=== PATIENT | female | born 1980 | race Hispanic/Latino ===

== ENCOUNTER 2020-02-29 16:47 | Observation (INO) | payer OTHER, SELFPAY ==
--- NOTE | ~2020-02-29 | XR_ITS ---
EXAMINATION: XR abdomen/kub 1V INDICATION: Flank pain and history of kidney stones TECHNIQUE: Supine views of the abdomen were obtained on 2 radiographs. COMPARISON: 08/26/2009 FINDINGS: No definite urinary tract calculi are identified. The bowel gas pattern is normal. There ar e cholecystectomy clips in the right upper quadrant. A surgical clip in the right lateral abdomen may reflect a dropped cholecystectomy clip. IMPRESSION: 1. No urinary tract calculi identified. Reviewed, dictated and finalized at location A.
--- NOTE | ~2020-02-29 | XR_ITS ---
EXAMINATION: XR chest 1V portable DATE: 02/29/2020 17:44 INDICATION: Shortness of breath and cough. TECHNIQUE: A single frontal view of the chest was obtained. COMPARISON: Chest single views 10/05/2019 FINDINGS: There are patchy airspace opacities in the mid and lower lung zones. No pleural effusion or pneumothorax. The heart size is normal. Surgical clips in the right upper quadrant are likely from c holecystectomy. IMPRESSION: 1. Patchy airspace opacities in the mid and lower lung zones suspicious for atypical pneumonia such a s COVID-19 pneumonia. Reviewed, dictated and finalized at location A. IMPRESSION: 1. Patchy airspace opacities in the mid and lower lung zones suspicious for aty pical pneumonia such as COVID-19 pneumonia.
[2020-02-29 16:58] VITALS: BP 104/58; PULSE 62; RESP 25; TEMP 36.3; O2SAT 99
--- NOTE | 2020-02-29 17:06 | ECG_ITS ---
Measurements Intervals [place] Rate: 62 P: 27 GA: 157 QRS: -5 QRSD: 101 T: 29 QT: 365 QTc: 372 Interpretive Statements SINUS RHYTHM BASELINE WANDER- V1-V6 NORMAL ECG Electronically Signed On 03-01-2020 7:14:56 CDT by Elvin Barrera D.O.
[2020-02-29 17:27] LABS: Basophils Percent Auto 0.3 % (0.2-1.2); Eosinophils Absolute Auto 0.1 K/mm3 (0-0.3); Eosinophils Percent Auto 1.3 % (0-4.4); Immature Granulocyte Absolute 0.01 K/mm3 (0.00-0.031); Immature Granulocyte Percent A 0.3 % (0-0.5); Lymphocytes Absolute Auto 1.37 K/mm3 (0.9-3.2); Lymphocytes Percent Auto 36.9 % (18.3-44.2); Mean Corpuscular HGB Conc 36.1 g/dl (32-36); Mean Corpuscular Hemoglobin 33.4 pg (26-34); Mean Corpuscular Volume 92.5 fl (80-100); Mean Platelet Volume 9.9 fl (7.4-10.4); Monocytes Absolute Auto 0.3 K/mm3 (0.1-0.6); Monocytes Percent Auto 7.3 % (2.6-8.5); Neutrophils Percent Auto 53.9 % (45.5-73.1); Platelet Count Result 171 k/mm3 (150-375); Red Blood Count 3.89 M/mm3 (4.2-5.4); Red Cell Distribution Width 11.8 % (11.5-14.5); White Blood Count 3.7 K/mm3 (4.5-10.0)
[2020-02-29] MEDS: ALBUTEROL SULFATE (*SP) AEROSOL 1 PUFF 4 PUFF INHALATION (17:54)
[2020-02-29 18:05] LABS: Blood Urea Nitrogen 11 mg/dL (7-17); Calcium 8.8 mg/dL (8.4-10.2); Carbon Dioxide 23 mmol/L (22-30); Chloride 103 mmol/L (98-107); Estimated CRCL calculation 127 ml/min; Estimated Glomerular Filt Rate > 60; Glucose 233 mg/dL (65-105); Potassium 3.8 mmol/L (3.4-5.0); Sodium 135 mmol/L (137-145)
--- NOTE | 2020-02-29 19:06 | ED.URI ---
HPI - URI/Sore Throat General Chief Complaint: Upper Respiratory Infection Stated Complaint: covid symptoms, sob Time Seen by Provider: 02/29/20 16:52 History of Present Illness HPI Narrative: Patient is a 39-year-old female who presents to the ER with cough and shortness of breath. Patient reports her was diagnosed with COVID-19 on 02/24/2020. She began experiencing symptoms 3 days ago that included cough and subjective fever. Had recently traveled back from [place]. Has not been taking medications. She is diabetic. No underlying lung disease and does not have her own nebulizer or inhaler. Related Data Home Medications Medication Instructions Recorded Confirmed calcium carbonate-vitamin D3 tablet 02/29/20 [Oysco 500/D] glyburide 5 mg PO DAILY 02/29/20 metformin 750 mg PO BID 02/29/20 multivitamin tablet 02/29/20 Allergies Allergy/AdvReac Type Severity Reaction Status Date / Time codeine Allergy Mild HIVES Verified 02/29/20 17:21 Review of Systems Review of Systems: All systems reviewed & are unremarkable except as noted in HPI and below Constitutional: Constitutional: Denies chills, Reports fatigue and Reports fever(s) ENT: Denies nasal congestion and Denies sore throat Cardiovascular: Cardiovascular: Denies chest pain and Denies rapid heart rate Respiratory: Respiratory: Reports cough, Reports dyspnea and Denies wheezing Gastrointestinal: Gastrointestinal: Denies abdominal pain, Denies nausea and Denies vomiting PMFSH Past Medical History Medical History (Updated 02/29/20 @ 20:53 by Julio Cesar Dumont MD) Diabetes mellitus GERD (gastroesophageal reflux disease) Surgical History Surgical History (Updated 02/29/20 @ 20:48 by Julio Cesar Dumont MD) H/O section History of cholecystectomy Social History Social History Smoking status: Current every day smoker Tobacco type: cigarettes Second hand tobacco smoke exposure: Yes Alcohol intake: never Substance use: never Substance use type: does not use 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 HEAD: Normocephalic, atraumatic. ENT: Mucous membranes moist. CHEST: Clear to auscultation. Frequent coughing with deep breath. HEART: Regular rate and rhythm. Normal peripheral pulses. ABDOMEN: Soft, nontender, nondistended. EXTREMITIES: Normal range of motion. No edema. SKIN: Warm, dry, no rash. NEURO: Alert and oriented x3. PSYCH: Normal mood and affect. Course Course Emergency Course: Accepted for admission for abx and respiratory treatments. Vital Signs Vital signs: Vital Signs Temperature 97.4 F L 02/29/20 16:58 Pulse Rate 62 02/29/20 16:58 Respiratory Rate 25 H 02/29/20 16:58 Blood Pressure 104/58 L 02/29/20 16:58 Pulse Oximetry 99 02/29/20 16:58 Temperature 97.4 F L 02/29/20 16:58 Pulse Rate 92 02/29/20 19:41 Respiratory Rate 26 H 02/29/20 19:41 Blood Pressure 113/72 02/29/20 19:41 Pulse Oximetry 97 02/29/20 19:41 MDM - URI/Sore Throat Lab Data Result diagrams: 02/29/20 17:21 02/29/20 17:41 Labs: Lab Results 02/29/20 02/29/20 Range/Units 17:21 17:41 WBC 3.7 L (4.5-10.0) K/mm3 RBC 3.89 L (4.2-5.4) M/mm3 Hgb 13.0 (12.0-15.0) g/dL Hct 36.0 L (37.0-47.0) % MCV 92.5 (80-100) fl MCH 33.4 (26-34) pg MCHC 36.1 H (32-36) g/dl RDW 11.8 (11.5-14.5) % Plt Count 171 D (150-375) k/mm3 MPV 9.9 (7.4-10.4) fl Immature Gran % (Auto) 0.3 (0-0.5) % Neut % (Auto) 53.9 (45.5-73.1) % Lymph % (Auto) 36.9 (18.3-44.2) % [place] % (Auto) 7.3 (2.6-8.5) % Eos % (Auto) 1.3 (0-4.4) % Baso % (Auto) 0.3
[2020-02-29 19:41] VITALS: BP 113/72; PULSE 92; RESP 26; O2SAT 97
--- NOTE | 2020-02-29 21:01 | ADMGEN ---
This patient, Sury Andrea, was admitted to 3 [facility] Surg Room 331-01. Patient/family oriented to hospital policies and general routines including ID bracelet, bed and alarms, visiting hours, pain management, procedures, bathroom and other care routines, personal items, smoking policy, room service/diet, and visiting hours. Valuables list has been completed. Information on how to activate the Rapid Response Team has been discussed. Patient/Family are encouraged to report perceived risks to care and to ask questions if they do not understand what they are told or what they should do.
[2020-02-29 21:17] VITALS: BP 116/56; PULSE 76; RESP 20; TEMP 37.4; O2SAT 99; BMI 26.6
[2020-02-29 22:16] LABS: Glucose Point of Care 164 (65-105)
--- NOTE | 2020-02-29 23:45 | PM.IMHP ---
H&P: HPI History of Present Illness Chief complaint: Cough, shortness of breath Narrative: Date and time of patient contact: 02/29/2020 at 11:45 p.m. Sury Andrea is a 39 year old female with a past medical history of insulin-dependent diabetes and prior hospitalization for influenza associated pneumonia September 2019 who presented to the ER with shortness of breath and cough. The patient reported that in January to [place] because her father in law had had a stroke. Her and her returned from [place] February 19. On February 23 her tested positive for COVID-19. He had been sick with upper respiratory symptoms starting a day or so after the returned home. She has tried isolate her but there 10 people living in her home. She develops symptoms of dry nonproductive cough, shortness of breath, pain with breathing, subjective fevers, and generalized myalgias starting on February 25. She has also noticed loss of the sense of taste and smell. She has noticed some intermittent wheezing but denies a history of COPD or asthma. She did have some lower extremity swelling when she 1st arrived in [place] but this resolved within a day or 2 of her arriving [place], she has not had a recurrence of leg swelling. She has had decreased appetite but denies any nausea or vomiting. She reports that her pleuritic chest pain is an 8/10 in intensity and is present on both sides of her chest. She also has noted some right flank pain. She states that in mid January she went to the hospital in [place] because of flank pain and was diagnosed with kidney stones. She was given 3 different medications to help her passed a kidney stone but she does not think she has passed them. That the pain in her flank is a 6/10 in intensity and is aching. It is been somewhat intermittent since onset. She reports decreased urine output and slightly darker urine. She denies any hematuria, hematochezia or melena. She has not had any changes in her bowel habits. She thinks that her 4 years old is also developing upper respiratory symptoms. She reports that she has had diabetes since she was 18 years old. She reports that she was morbidly obese when she was recently diagnosed with diabetes but has had significant weight loss over the years. Review of Systems Review of Systems: Narrative: 12 systems were reviewed with pertinent positives and negatives per HPI. Except as documented in the HPI, all other systems were reviewed and are negative. [facility] Past Medical History Medical History (Updated 03/01/20 @ 02:39 by Yarelis France DO) Depression Diabetes mellitus with insulin therapy Genital herpes GERD (gastroesophageal reflux disease) History of PCOS Pancreatitis Peripheral neuropathy Seasonal rhinitis Surgical History Surgical History (Updated 02/29/20 @ 21:34 by Yarelis France DO) H/O section 01/2014 History of cholecystectomy History of dilation and curettage X3 Family History Family History (Updated 02/29/20 @ 21:31 by Yarelis France DO) Mother Diabetes mellitus Carcinoma of colon Grandparent Lung cancer Father Hypertension Heart attack Social History Social History (Updated 03/01/20 @ 02:35 by Yarelis France DO) Social History: Primary care physician: Dr. Juan Carlos Sosa Code status: Full code Smoking packs per day: 0.25 Smoking cigarettes per day: 5.0 Years smoked: 20 Smoking pack-years: 5.00 Smoking status: Former smoker Tobacco type: cigarettes Second hand tobacco smoke exposure: Yes Alcohol intake: current Alcohol use details: She drinks alcohol in moderation in on occasion. Approximately 1 drink every month or so. Substance use: never Substance use type: does not use Living arrangements: with family Additional living arrangements comments: She lives at home with her 5 children and . She told nursing staff that she currently has 10 people christy
[2020-03-01] VITALS (7 sets, daily range): BP systolic 102–125; BP diastolic 45–62; PULSE 61–102; RESP 16–18; TEMP 36.7–39.2; O2SAT 92–97
--- NOTE | 2020-03-01 05:33 | PCRCNOTE ---
Window of time for administration has passed. See next scheduled administration.
[2020-03-01 07:40] LABS: Hemoglobin 11.6 g/dL (12.0-15.0); Mean Corpuscular HGB Conc 35.2 g/dl (32-36); Mean Platelet Volume 9.3 fl (7.4-10.4); Platelet Count Result 145 k/mm3 (150-375); Red Blood Count 3.51 M/mm3 (4.2-5.4); Red Cell Distribution Width 11.9 % (11.5-14.5); White Blood Count 3.9 K/mm3 (4.5-10.0)
[2020-03-01 07:53] LABS: D Dimer 0.67 ug/mL (<0.48)
--- NOTE | 2020-03-01 08:00 | ECG_ITS ---
Measurements Intervals [place] Rate: 64 P: 24 [place]: 170 QRS: -3 QRSD: 85 T: 6 QT: 397 QTc: 412 Interpretive Statements SINUS RHYTHM NORMAL ECG Electronically Signed On 03-01-2020 12:52:43 CDT by Elvin Barrera D.O.
[2020-03-01 08:03] LABS: Alanine Aminotransferase 40 U/L (4-35); Albumin Level 3.7 g/dL (3.5-5.1); Alkaline Phosphatase 87 U/L (38-126); Aspartate Amino Transferase 39 U/L (14-36); Bilirubin,Total 0.3 mg/dL (0.2-1.3); Blood Urea Nitrogen 11 mg/dL (7-17); CRP 4.8 mg/dL (<1.0); Calcium 8.4 mg/dL (8.4-10.2); Carbon Dioxide 28 mmol/L (22-30); Chloride 104 mmol/L (98-107); Estimated CRCL calculation 107 ml/min; Estimated Glomerular Filt Rate > 60; Glucose 178 mg/dL (65-105); Lactate Dehydrogenase 355 U/L (313-618); Potassium 3.9 mmol/L (3.4-5.0); Sodium 134 mmol/L (137-145)
[2020-03-01] MEDS: ALBUTEROL SULFATE (*SP) AEROSOL 1 PUFF 4 PUFF INHALATION ×4 (08:41→20:44)
[2020-03-01] MEDS: INSULIN GLARGINE (*BKC) 100 UNITS/ML 25 UNITS SUB-Q (09:54)
[2020-03-01] MEDS: ENOXAPARIN 40 MG/0.4 ML SYRINGE SUB-Q (09:55)
[2020-03-01] MEDS: metFORMIN HCL 250 MG TABLET PO ×2 (09:55→17:59)
[2020-03-01] MEDS: MULTIVITAMINS THERAPEUTIC TAB (*BKC) 1 TABLET PO (09:56)
[2020-03-01] MEDS: metFORMIN HCL 500 MG TABLET PO ×2 (09:56→17:59)
[2020-03-01] MEDS: glyBURIDE 5 MG TABLET PO (09:56)
[2020-03-01 10:41] LABS: Glucose Point of Care 154 (65-105)
[2020-03-01 13:37] LABS: SARS-CoV-2 RNA PCR Positive
[2020-03-01 13:52] LABS: Glucose Point of Care 182 (65-105)
--- NOTE | 2020-03-01 16:30 | PM.IMPN ---
Progress Note: A&P Assessment and Plan (1) Pneumonia: Qualifiers: Laterality: bilateral Lung location: unspecified part of lung Pneumonia type: due to unspecified organism Qualified Code(s): J18.9 - Pneumonia, unspecified organism Code(s): J18.9 - Pneumonia, unspecified organism Status: Acute Assessment and Plan: The patient is at high risk for possible COVID-19 related pneumonia. She has been started on empiric antibiotic therapy with azithromycin. Will check repeat EKG in a.m.. Her current QT interval is normal. Given her report of wheezing will add albuterol inhaler every 6 hours. The patient would like to go home tomorrow if she is stable. 03/01/20 16:30 Patient is a 39-year-old female recently traveled to [place], patient presented emergency department with complaint cough shortness of breath subjective fever patient is positive for COVID-19, patient clinically symptoms are stable though with cough and fever patient is on room air and not requiring any supplemental oxygen, her COVID test is positive, patient states feeling better still has cough and shortness of breath but denies any fever or chills. Patient was started on azithromycin from urgency department for possible pneumonia, and albuterol inhaler, patient does not qualify for Remdesivir antiviral medication as patient clinically stable on room air, continue to monitor patient oxygen requirement if remains stable and without fever may discharge the patient home with self quarantine. (2) Person under investigation for COVID-19: Code(s): Z20.828 - Contact with and (suspected) exposure to other viral communicable diseases Status: Acute Assessment and Plan: COVID-19 testing is pending. Isolation has been initiated with droplet/airborne precautions. Inflammatory markers including D-dimer, CRP, LDH and ferritin have been ordered for a.m. 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 Will resume the patient's long-acting insulin. Moderate sliding scale insulin has been added a.c. and HS. Consistent carbohydrate diet has been ordered. (4) Kidney stone on right side: Code(s): N20.0 - Calculus of kidney Status: Acute Assessment and Plan: She is reporting persistent right flank pain since diagnosis of kidney stones in mid January. Will check a UA and KUB. Will hold off on ordering a CT of the abdomen pelvis at this time given the patient's possible COVID-19 infection. Subjective Date/time seen: 03/01/20 16:30 Patient is a 39-year-old female recently traveled to [place], patient presented emergency department with complaint cough shortness of breath subjective fever patient is positive for COVID-19, patient clinically symptoms are stable though with cough and fever patient is on room air and not requiring any supplemental oxygen, her COVID test is positive, patient states feeling better still has cough and shortness of breath but denies any fever or chills. Patient was started on azithromycin from urgency department for possible pneumonia, and albuterol inhaler, patient does not qualify for Remdesivir antiviral medication as patient clinically stable on room air, continue to monitor patient oxygen requirement if remains stable and without fever may discharge the patient home with self quarantine. Review of Systems Review of Systems: All systems reviewed & are unremarkable except as noted in HPI and below Exam Narrative:
[2020-03-01] MEDS: ACETAMINOPHEN 325 MG TABLET 650 MG PO (17:58)
[2020-03-02] VITALS (7 sets, daily range): BP systolic 98–120; BP diastolic 49–65; PULSE 73–95; RESP 14–20; TEMP 36.2–37; O2SAT 94–97
[2020-03-02 04:03] LABS: Glucose Point of Care 113 (65-105)
[2020-03-02 07:31] LABS: Glucose Point of Care 125 (65-105)
[2020-03-02] MEDS: MULTIVITAMINS THERAPEUTIC TAB (*BKC) 1 TABLET PO (09:38)
[2020-03-02] MEDS: ENOXAPARIN 40 MG/0.4 ML SYRINGE SUB-Q (09:38)
[2020-03-02] MEDS: glyBURIDE 5 MG TABLET PO (09:38)
[2020-03-02] MEDS: metFORMIN HCL 500 MG TABLET PO (09:38)
[2020-03-02] MEDS: metFORMIN HCL 250 MG TABLET PO (09:38)
[2020-03-02] MEDS: ALBUTEROL SULFATE (*SP) AEROSOL 1 PUFF 4 PUFF INHALATION ×4 (10:44→20:14)
--- NOTE | 2020-03-02 16:21 | PM.IMPN ---
Progress Note: A&P Assessment and Plan (1) Pneumonia: Qualifiers: Laterality: bilateral Lung location: unspecified part of lung Pneumonia type: due to unspecified organism Qualified Code(s): J18.9 - Pneumonia, unspecified organism Code(s): J18.9 - Pneumonia, unspecified organism Status: Acute Assessment and Plan: The patient is at high risk for possible COVID-19 related pneumonia. She has been started on empiric antibiotic therapy with azithromycin. Will check repeat EKG in a.m.. Her current QT interval is normal. Given her report of wheezing will add albuterol inhaler every 6 hours. The patient would like to go home tomorrow if she is stable. 03/02/20 16:21 Patient is a 39-year-old female recently traveled to [place], patient presented emergency department with complaint cough shortness of breath subjective fever patient is positive for COVID-19, patient clinically symptoms are stable though with cough and fever patient is on room air and not requiring any supplemental oxygen, her COVID test is positive, patient states feeling better still has cough and shortness of breath but denies any fever or chills. Patient was started on azithromycin from urgency department for possible pneumonia, and albuterol inhaler, patient does not qualify for Remdesivir antiviral medication as patient clinically stable on room air, continue to monitor patient oxygen requirement if remains stable and without fever may discharge the patient home with self quarantine possibly tomorrow, patient has agreed with plan. her he already positive can last picker her from the hospital. (2) Person under investigation for COVID-19: Code(s): Z20.828 - Contact with and (suspected) exposure to other viral communicable diseases Status: Acute Assessment and Plan: COVID-19 testing is pending. Isolation has been initiated with droplet/airborne precautions. Inflammatory markers including D-dimer, CRP, LDH and ferritin have been ordered for a.m. 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 Will resume the patient's long-acting insulin. Moderate sliding scale insulin has been added a.c. and HS. Consistent carbohydrate diet has been ordered. (4) Kidney stone on right side: Code(s): N20.0 - Calculus of kidney Status: Acute Assessment and Plan: She is reporting persistent right flank pain since diagnosis of kidney stones in mid January. Will check a UA and KUB. Will hold off on ordering a CT of the abdomen pelvis at this time given the patient's possible COVID-19 infection. Subjective Date/time seen: 03/02/20 16:21 Patient is a 39-year-old female recently traveled to [place], patient presented emergency department with complaint cough shortness of breath subjective fever patient is positive for COVID-19, patient clinically symptoms are stable though with cough and fever patient is on room air and not requiring any supplemental oxygen, her COVID test is positive, patient states feeling better still has cough and shortness of breath but denies any fever or chills. Patient was started on azithromycin from urgency department for possible pneumonia, and albuterol inhaler, patient does not qualify for Remdesivir antiviral medication as patient clinically stable on room air, continue to monitor patient oxygen requirement if remains stable and without fever may discharge the patient home with self quarantine possibly tomorrow, pat
[2020-03-02 16:53] LABS: Alanine Aminotransferase 31 U/L (4-35); Albumin Level 3.8 g/dL (3.5-5.1); Alkaline Phosphatase 85 U/L (38-126); Aspartate Amino Transferase 32 U/L (14-36); Bilirubin,Total 0.3 mg/dL (0.2-1.3); Blood Urea Nitrogen 12 mg/dL (7-17); CRP 7.1 mg/dL (<1.0); Calcium 9.1 mg/dL (8.4-10.2); Carbon Dioxide 30 mmol/L (22-30); Chloride 102 mmol/L (98-107); Estimated CRCL calculation 107 ml/min; Estimated Glomerular Filt Rate > 60; Glucose 83 mg/dL (65-105); Potassium 3.4 mmol/L (3.4-5.0); Sodium 139 mmol/L (137-145)
[2020-03-02] MEDS: ACETAMINOPHEN 325 MG TABLET 650 MG PO (18:09)
[2020-03-02 19:38] LABS: Glucose Point of Care 100 (65-105)
[2020-03-02 19:38] LABS: Glucose Point of Care 85 (65-105)
[2020-03-02 19:38] LABS: Glucose Point of Care 130 (65-105)
[2020-03-02 23:12] LABS: Glucose Point of Care 109 (65-105)
[2020-03-03 02:00] VITALS: BP 105/57; PULSE 66; RESP 14; TEMP 36.7; O2SAT 96
[2020-03-03 06:00] VITALS: BP 108/60; PULSE 70; RESP 14; TEMP 36.7; O2SAT 95
[2020-03-03 06:48] LABS: Basophils Percent Auto 0.2 % (0.2-1.2); Eosinophils Absolute Auto 0.1 K/mm3 (0-0.3); Eosinophils Percent Auto 2.3 % (0-4.4); Hematocrit 33.4 % (37.0-47.0); Hemoglobin 11.6 g/dL (12.0-15.0); Immature Granulocyte Absolute 0.02 K/mm3 (0.00-0.031); Immature Granulocyte Percent A 0.4 % (0-0.5); Lymphocytes Absolute Auto 1.37 K/mm3 (0.9-3.2); Lymphocytes Percent Auto 28.8 % (18.3-44.2); Mean Corpuscular HGB Conc 34.7 g/dl (32-36); Mean Corpuscular Volume 95.2 fl (80-100); Mean Platelet Volume 9.2 fl (7.4-10.4); Monocytes Absolute Auto 0.4 K/mm3 (0.1-0.6); Neutrophils Absolute Auto 2.9 K/mm3 (1.3-6.7); Neutrophils Percent Auto 60.3 % (45.5-73.1); Platelet Count Result 170 k/mm3 (150-375); Red Blood Count 3.51 M/mm3 (4.2-5.4); Red Cell Distribution Width 11.6 % (11.5-14.5); White Blood Count 4.8 K/mm3 (4.5-10.0)
[2020-03-03 07:30] LABS: Alanine Aminotransferase 30 U/L (4-35); Albumin Level 3.8 g/dL (3.5-5.1); Alkaline Phosphatase 81 U/L (38-126); Aspartate Amino Transferase 35 U/L (14-36); Bilirubin,Total 0.3 mg/dL (0.2-1.3); Blood Urea Nitrogen 11 mg/dL (7-17); CRP 6.6 mg/dL (<1.0); Carbon Dioxide 28 mmol/L (22-30); Chloride 104 mmol/L (98-107); Estimated CRCL calculation 107 ml/min; Estimated Glomerular Filt Rate > 60; Glucose 113 mg/dL (65-105); Potassium 4.1 mmol/L (3.4-5.0); Sodium 136 mmol/L (137-145)
[2020-03-03] MEDS: ALBUTEROL SULFATE (*SP) AEROSOL 1 PUFF 4 PUFF INHALATION ×2 (09:25→12:43)
[2020-03-03] MEDS: ENOXAPARIN 40 MG/0.4 ML SYRINGE SUB-Q (09:32)
[2020-03-03] MEDS: MULTIVITAMINS THERAPEUTIC TAB (*BKC) 1 TABLET PO (09:32)
[2020-03-03 09:59] LABS: Glucose Point of Care 104 (65-105)
[2020-03-03 10:00] VITALS: BP 116/67; PULSE 65; RESP 14; TEMP 37.5; O2SAT 97
--- NOTE | 2020-03-03 11:08 | PM.DS ---
DS: Admitting Diagnosis Admitting Diagnosis Admitting Diagnosis: Pneumonia, unspecified organism DS: Discharge Diagnosis Discharge Diagnosis (1) Pneumonia: Qualifiers: Laterality: bilateral Lung location: unspecified part of lung Pneumonia type: due to unspecified organism Qualified Code(s): J18.9 - Pneumonia, unspecified organism Code(s): J18.9 - Pneumonia, unspecified organism Status: Acute Assessment and Plan: The patient is at high risk for possible COVID-19 related pneumonia. She has been started on empiric antibiotic therapy with azithromycin. Will check repeat EKG in a.m.. Her current QT interval is normal. Given her report of wheezing will add albuterol inhaler every 6 hours. The patient would like to go home tomorrow if she is stable. 03/02/20 16:21 Patient is a 39-year-old female recently traveled to [place], patient presented emergency department with complaint cough shortness of breath subjective fever patient is positive for COVID-19, patient clinically symptoms are stable though with cough and fever patient is on room air and not requiring any supplemental oxygen, her COVID test is positive, patient states feeling better still has cough and shortness of breath but denies any fever or chills. Patient was started on azithromycin from urgency department for possible pneumonia, and albuterol inhaler, patient does not qualify for Remdesivir antiviral medication as patient clinically stable on room air, continue to monitor patient oxygen requirement if remains stable and without fever may discharge the patient home with self quarantine possibly tomorrow, patient has agreed with plan. her he already positive can picker packer her from the hospital. (2) Person under investigation for COVID-19: Code(s): Z20.828 - Contact with and (suspected) exposure to other viral communicable diseases Status: Acute Assessment and Plan: COVID-19 testing is pending. Isolation has been initiated with droplet/airborne precautions. Inflammatory markers including D-dimer, CRP, LDH and ferritin have been ordered for a.m. 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 Will resume the patient's long-acting insulin. Moderate sliding scale insulin has been added a.c. and HS. Consistent carbohydrate diet has been ordered. (4) Kidney stone on right side: Code(s): N20.0 - Calculus of kidney Status: Acute Assessment and Plan: She is reporting persistent right flank pain since diagnosis of kidney stones in mid January. Will check a UA and KUB. Will hold off on ordering a CT of the abdomen pelvis at this time given the patient's possible COVID-19 infection. DS: Summary Hospital Course Reason for hospitalization: Sury Andrea is a 39 year old female with a past medical history of insulin-dependent diabetes and prior hospitalization for influenza associated pneumonia September 2019 who presented to the ER with shortness of breath and cough. The patient reported that in January to [place] because her father in law had had a stroke. Her and her returned from [place] February 19. On February 23 her tested positive for COVID-19. He had been sick with upper respiratory symptoms starting a day or so after the returned home. She has tried isolate her but there 10 people living in her home. She develops symptoms of dry nonproductive cough, shortness of breath, pain with breathing, subjective fevers, and
== END 2020-03-03 13:10 | disposition home or self-care (01) ==
LOC: ANHED 19:02 → ANH3MEDSUR 20:53
PROVIDERS: Internal Medicine; Admitting Provider Internal Medicine; Emergency Provider Emergency Medicine; PCP Emergency Medicine; Visit Provider Family Medicine
DX: U07.1 COVID-19 (principal); J12.89 Other viral pneumonia; E11.65 Type 2 diabetes mellitus with hyperglycemia; E11.42 Type 2 diabetes mellitus with diabetic polyneuropathy; N20.0 Calculus of kidney; K21.9 Gastro-esophageal reflux disease without esophagitis; F17.210 Nicotine dependence, cigarettes, uncomplicated; Z79.4 Long term (current) use of insulin; Z79.899 Other long term (current) drug therapy
CPT/HCPCS: 36415; 71045; 74018; 80048; 80053; 82728; 83615; 85025; 85027; 85380; 86140; 87040; 87635; 93005; 94640; 96365; 96372; 99285; A9270; C9803; G0378; G0379; J0456; J1650; J1815; U0003

== ENCOUNTER 2020-04-28 14:20 | Emergency (ER) | payer OTHER, SELFPAY ==
--- NOTE | ~2020-04-28 | US_ITS ---
EXAMINATION: US pelvic complete w TV EXAM DATE: 04/28/2020 18:06 INDICATION: Pelvic pain. TECHNIQUE: Pelvic transabdominal and transvaginal sonogram was performed. There are multiple graysca le and Doppler images available for interpretation. There is no prior study for comparison. FINDINGS: Uterus measures 9.1 x 5.5 x 4.9 cm, and is morphologically normal. Endometrial stripe aisha sures 9 mm, within normal limits. There is trace free pelvic fluid. Right adnexa: The ovary measures 2.4 x 2.2 x 1.8 cm and is morphologically normal. Ovarian vascular f low confirmed. Left adnexa: The ovary is not identified. There is no adnexal mass. IMPRESSION: 1. Unremarkable pelvic ultrasound exam. Reviewed, dictated and finalized at location A.
--- NOTE | ~2020-04-28 | CT_ITS ---
EXAMINATION: CT abdomen pelvis w con DATE: 04/28/2020 16:24 INDICATION: Abdominal pain, pelvic pain. TECHNIQUE: Computed tomography (CT) of the abdomen and pelvis was performed without intravenous contr ast. Automated exposure control and iterative reconstruction technique were employed. Exam dose: 522 .92 mGy-cm total exam DLP. COMPARISON: 03/01/2020 CT abdomen pelvis. FINDINGS: The lung bases are clear. Normal heart size. No pericardial or pleural effusion. There is diffuse hepatic steatosis. No hepatic, splenic, pancreatic, adrenal or renal space occupyin g mass lesion. Normal appendix. No bowel obstruction or bowel wall thickening, pneumatosis or intraperitoneal free air. There are diverticula of the colon; no evidence of diverticulitis. Normal caliber of the abdominal aorta. No intraperitoneal or retroperitoneal or pelvic mass lesion o r adenopathy. The uterus, adnexal areas and urinary bladder are unremarkable. Diffuse idiopathic skeletal hyperostosis of the thoracic spine. IMPRESSION: Hepatic steatosis Status post cholecystectomy Diverticulosis of the colon Reviewed, dictated and finalized at [facility]. Reviewed, dictated and finalized at location A.
[2020-04-28 14:27] VITALS: BP 142/76; PULSE 100; RESP 15; TEMP 36.8; O2SAT 99
--- NOTE | 2020-04-28 15:12 | ED.ABDPAIN ---
HPI - Abdominal Pain General Chief Complaint: Abdominal Pain <PARTH Rees Last Filed: 04/28/20 18:47> Stated Complaint: abd pain <PARTH Rees Last Filed: 04/28/20 18:47> Time Seen by Provider: 04/28/20 14:50 <PARTH Rees Last Filed: 04/28/20 18:47> Source: patient <PARTH Rees Last Filed: 04/28/20 18:47> Mode of arrival: ambulatory <PARTH Rees Last Filed: 04/28/20 18:47> Limitations: no limitations <PARTH Rees Last Filed: 04/28/20 18:47> History of Present Illness HPI narrative: This is a 39 year old female that presents to the ER for lower abdominal pain x 6 months. Reports worsening over the last couple of weeks. Reports pain is worse with intercourse. Also reports bloating. Reports right sided back pain as well. No known injuries or trauma. Pain is worse with movement and relieved with rest. Denies fever, nausea, vomiting, diarrhea, dysuria or hematuria. <PARTH Rees Last Filed: 04/28/20 18:47> Related Data Home Medications: Home Medications Medication Instructions Recorded Confirmed calcium carbonate-vitamin D3 1 tablet PO DAILY 02/29/20 02/29/20 [Oysco 500/D] glyburide 5 mg PO DAILY 02/29/20 02/29/20 metformin 750 mg PO BID 02/29/20 02/29/20 multivitamin 1 tablet PO DAILY 02/29/20 02/29/20 <PARTH Rees Last Filed: 04/28/20 18:47> Allergies/Adverse Reactions: Allergies Allergy/AdvReac Type Severity Reaction Status Date / Time codeine Allergy Mild HIVES Verified 04/28/20 14:29 <PARTH Rees Last Filed: 04/28/20 18:47> Review of Systems Review of Systems: Narrative: CONSTITUTIONAL: Denies fever GASTROINTESTINAL: Reports abdominal pain. Denies nausea, vomiting, or diarrhea. GENITOURINARY: Denies dysuria or hematuria. SKIN: Denies rash MUSCULOSKELETAL: Reports back pain, joint pain, and myalgia. NEUROLOGIC: Denies numbness, or weakness. <Desire Oliveros PA-C - Last Filed: 04/28/20 18:47> All systems reviewed & are unremarkable except as noted in HPI and below <Desire Oliveros PA-C - Last Filed: 04/28/20 18:47> [facility] Past Medical History Medical History: Medical History (Updated 04/28/20 @ 18:46 by Desire Oliveros PA-C) Depression Diabetes mellitus with insulin therapy Genital herpes GERD (gastroesophageal reflux disease) History of PCOS Pancreatitis Peripheral neuropathy Seasonal rhinitis <Desire Oliveros PA-C - Last Filed: 04/28/20 18:47> Surgical History Surgical History: Surgical History (Updated 02/29/20 @ 21:34 by Yarelis France DO) H/O section 01/2014 History of cholecystectomy History of dilation and curettage X3 <Desire Oliveros PA-C - Last Filed: 04/28/20 18:47> Family History Family History: Family History (Updated 02/29/20 @ 21:31 by Yarelis France DO) Mother Diabetes mellitus Carcinoma of colon Grandparent Lung cancer Father Hypertension Heart attack <Desire Oliveros PA-C - Last Filed: 04/28/20 18:47> Social History Social History: Social History (Updated 03/01/20 @ 02:35 by Yarelis France DO) Social History: Primary care physician: Dr. Juan Carlos Sosa Code status: Full code Smoking packs per day: 0.25 Smoking cigarettes per day: 5.0 Years smoked: 20 Smoking pack-years: 5.00 Smoking status: Former smoker Tobacco type: cigarettes Second hand tobacco smoke exposure: Yes Alcohol intake: current Substance use: never Substance use type: does not use Additional living arrangements comments: She lives at home with her 5 children and . She told nursing staff that she currently has 10 people living in her home. Her children range between 4 years of age and 17 years of age. She has been for 5 years but her and her have been together for 15 years. Additional occupation/educa
[2020-04-28 15:28] LABS: Basophils Percent Auto 0.3 % (0.2-1.2); Eosinophils Absolute Auto 0.1 K/mm3 (0-0.3); Eosinophils Percent Auto 2.2 % (0-4.4); Hematocrit 37.3 % (37.0-47.0); Hemoglobin 13.2 g/dL (12.0-15.0); Immature Granulocyte Absolute 0.02 K/mm3 (0.00-0.031); Immature Granulocyte Percent A 0.3 % (0-0.5); Lymphocytes Absolute Auto 2.04 K/mm3 (0.9-3.2); Lymphocytes Percent Auto 32.1 % (18.3-44.2); Mean Corpuscular HGB Conc 35.4 g/dl (32-36); Mean Corpuscular Hemoglobin 33.2 pg (26-34); Mean Corpuscular Volume 93.7 fl (80-100); Mean Platelet Volume 9.9 fl (7.4-10.4); Monocytes Absolute Auto 0.3 K/mm3 (0.1-0.6); Monocytes Percent Auto 4.7 % (2.6-8.5); Neutrophils Absolute Auto 3.8 K/mm3 (1.3-6.7); Neutrophils Percent Auto 60.4 % (45.5-73.1); Platelet Count Result 192 k/mm3 (150-375); Red Blood Count 3.98 M/mm3 (4.2-5.4); Red Cell Distribution Width 12.4 % (11.5-14.5); White Blood Count 6.4 K/mm3 (4.5-10.0)
[2020-04-28 15:30] LABS: Alanine Aminotransferase 25 U/L (4-35); Albumin Level 4.1 g/dL (3.5-5.1); Alkaline Phosphatase 98 U/L (38-126); Anion Gap 8 mmol/L (8-16); Aspartate Amino Transferase 25 U/L (14-36); Bilirubin,Total 0.4 mg/dL (0.2-1.3); Blood Urea Nitrogen 14 mg/dL (7-17); Calcium 8.8 mg/dL (8.4-10.2); Carbon Dioxide 26 mmol/L (22-30); Chloride 99 mmol/L (98-107); Estimated CRCL calculation 106 ml/min; Estimated Glomerular Filt Rate > 60; Glucose 376 mg/dL (65-105); Lipase 176 U/L (23-300); Potassium 3.9 mmol/L (3.4-5.0); Sodium 133 mmol/L (137-145)
[2020-04-28 15:39] LABS: Add Urine Microscopic? YES; Appearance Urine Clear (Clear); Bilirubin Urine Negative (Negative); Blood Urine Negative (Negative); Color Urine Yellow (Yellow); Glucose Urine UA 3+ mg/dL (Negative); Ketones Urine Negative (Negative); Leukocyte Esterase Ur Negative LEU/UL (Negative); Mucus Urine Rare /lpf; Nitrate Urine Negative (Negative); Protein Urine Negative (Negative); RBC Urine 0-2 /hpf (0-2); Squamous Epithelial Cell Urine Few /hpf (Few); Urobilinogen Urine Negative mg/dL (<2.0); WBC Urine 0-3 /hpf
[2020-04-28 15:40] LABS: Specific Grav Ur 1.032 (1.001-1.035)
[2020-04-28 17:09] VITALS: BP 165/88; PULSE 85; RESP 18; O2SAT 100
[2020-04-28] MEDS: KETOROLAC 30 MG/ML VIAL (*BKC) IV PUSH (18:24)
== END 2020-04-28 18:54 | disposition home or self-care (01) ==
PROVIDERS: Physician Assistant; Emergency Provider Emergency Medicine; PCP Emergency Medicine
DX: R10.32 Left lower quadrant pain (principal); R10.31 Right lower quadrant pain; E11.42 Type 2 diabetes mellitus with diabetic polyneuropathy; Z79.84 Long term (current) use of oral hypoglycemic drugs; Z79.4 Long term (current) use of insulin; E28.2 Polycystic ovarian syndrome; Z87.891 Personal history of nicotine dependence; K21.9 Gastro-esophageal reflux disease without esophagitis; K76.0 Fatty (change of) liver, not elsewhere classified; K57.90 Diverticulosis of intestine, part unspecified, without perforation or abscess without bleeding
CPT/HCPCS: 36415; 74177; 76830; 76856; 80053; 81001; 81025; 83690; 85025; 96365; 96375; 99284; J0131; J1885; Q9967

== ENCOUNTER 2020-04-29 10:59 | Outpatient (CLI) | payer OTHER, SELFPAY ==
--- NOTE | ~2020-04-29 | XR_ITS ---
XR lumbar spine 2-3V DATE: 04/29/2020 11:37 INDICATION: Generalized low back pain for 6 months. No injury. TECHNIQUE: AP, lateral, coned lateral lumbosacral views COMPARISON: None FINDINGS: The lumbar vertebrae are normally aligned. No fracture or bone destruction is evident. No s pondylolisthesis. Lumbar and lumbosacral interspaces are relatively preserved. There are some promine nt spurs at L3-4 and L4-5. The sacroiliac joints appear normal. Surgical clips, upper abdomen, likely due to cholecystectomy IMPRESSION: Mild degenerative change Reviewed, dictated and finalized at location A. IMPRESSION: Mild degenerative change
--- NOTE | ~2020-04-29 | XR_ITS ---
XR sacrum coccyx min 2V DATE: 04/29/2020 11:38 INDICATION: Pelvic pain TECHNIQUE: AP, angled AP and lateral views of sacrum and coccyx COMPARISON: None FINDINGS: Prominent spurring is noted at L3-4 and L4-5. No fracture or bone destruction of the sacrum or coccyx. Normal alignment at the sacroiliac joints. No erosive change or ankylosis is identified. The pubic sy mphysis is intact. Moderate bilateral hip osteoarthritis. IMPRESSION: No significant abnormality of the sacrum or coccyx Reviewed, dictated and finalized at location A.
--- NOTE | ~2020-04-29 | XR_ITS ---
XR thoracic spine 3V DATE: 04/29/2020 11:37 INDICATION: Back pain for 6 months. No injury. TECHNIQUE: AP, lateral, swimmer views COMPARISON: None FINDINGS: There are prominent bridging osteophytes at C4-C6. Prominent spurring at C3-4 and C6-7 as w ell. Diffuse idiopathic skeletal hyperostosis of the thoracic spine. No fracture or bone destruction of the thoracic spine. The thoracic pedicles are intact. No paraspina l soft tissue thickening. Surgical clips overlie the right upper quadrant, consistent with cholecystectomy. IMPRESSION: Prominent spurring and bridging osteophytes of the cervical spine Diffuse idiopathic skeletal hyperostosis of the thoracic spine Reviewed, dictated and finalized at location A.
[2020-04-29 12:02] LABS: Add Urine Microscopic? YES; Appearance Urine Clear (Clear); Bacteria Urine Trace /hpf; Bilirubin Urine Negative (Negative); Blood Urine Negative (Negative); Color Urine Yellow (Yellow); Glucose Urine UA 3+ mg/dL (Negative); Ketones Urine Negative (Negative); Leukocyte Esterase Ur Negative LEU/UL (NEGATIVE); Mucus Urine Rare /lpf; Nitrate Urine Negative (Negative); Protein Urine Negative (Negative); Squamous Epithelial Cell Urine Many /hpf (Few); Urobilinogen Urine Negative mg/dL (<2.0); WBC Urine 0-3 /hpf (0-3)
[2020-04-29 12:07] LABS: Specific Grav Ur 1.038 (1.001-1.035)
[2020-04-29 12:09] LABS: Cholesterol 151 mg/dL (0-200); HDL Direct 27 mg/dL; Triglycerides 335 mg/dL (<150)
[2020-04-29 12:10] LABS: Creatinine Urine 153.9 mg/dL; MALB Creatinine Ratio 6.1 mg/g (0-30); Microalbumin Urine Random 9.4 mg/L (0-16.7)
[2020-04-29 12:12] LABS: Rheumatoid Factor < 8.6 IU/ML (<12)
[2020-04-29 12:17] LABS: Erythrocyte Sedimentation Rate 43 mm/hr (0-20)
[2020-04-29 12:20] LABS: LDL Cholesterol Direct 79 mg/dL
[2020-04-29 12:38] LABS: Free T4 Free Thyroxine 0.75 ng/mL (0.78-2.19); Vitamin D 25 Hydroxy 24.9 ng/mL
[2020-04-29 12:53] LABS: Hepatitis B Surface Antigen Negative (Negative)
[2020-04-29 12:59] LABS: HAV RESULT Negative (Negative); Hepatitis B Core IgM Result Negative (Negative)
[2020-04-29 13:10] LABS: Hepatitis C Virus Antibody Negative (Negative)
[2020-04-30 12:31] LABS: Hemoglobin A1C 10.2 % (<5.7)
== END 2020-04-29 11:00 | disposition home or self-care (01) ==
LOC: ANHIMG 11:04
PROVIDERS: PCP Emergency Medicine; Visit Provider Emergency Medicine
DX: M54.5 Low back pain (principal); E11.9 Type 2 diabetes mellitus without complications
CPT/HCPCS: 36415; 72072; 72100; 72220; 80061; 80074; 81001; 82043; 82306; 83036; 84439; 84443; 85652; 86038; 86430; 87086

== ENCOUNTER 2020-05-06 10:15 | Outpatient (CLI) | payer OTHER, SELFPAY ==
--- NOTE | ~2020-05-06 | XR_ITS ---
EXAMINATION:XR cervical spine 4-5V DATE: 05/06/2020 10:35 INDICATION: Neck pain TECHNIQUE: AP, lateral, lateral swimmers and odontoid views of the cervical spine are provided. COMPARISON: 08/29/2010 FINDINGS: Alignment is normal. The odontoid is intact. No fracture is identified. Vertebral body heig hts and disk spaces are normal. Prevertebral soft tissues are normal. Bridging anterior osteophytes a re seen from C4 through C6. IMPRESSION: 1. Mild cervical spondylosis without acute findings or significant interval change. Reviewed, dictated and finalized at location A. IMPRESSION: 1. Mild cervical spondylosis without acute findings or significant interval fred e.
== END 2020-05-06 10:16 | disposition home or self-care (01) ==
LOC: ANHIMG 10:19
PROVIDERS: PCP Emergency Medicine; Visit Provider Emergency Medicine
DX: M47.892 Other spondylosis, cervical region (principal)
CPT/HCPCS: 72050

== ENCOUNTER 2021-05-04 17:34 | Emergency (ER) | payer OTHER, SELFPAY ==
[2021-05-04 17:47] VITALS: BP 168/82; PULSE 72; RESP 20; TEMP 36.3; O2SAT 99
[2021-05-04 20:16] VITALS: BP 143/73; PULSE 56; RESP 18; O2SAT 99
[2021-05-04] MEDS: IBUPROFEN 600 MG TABLET PO (23:55)
[2021-05-05 01:04] VITALS: BP 168/78; PULSE 54; RESP 18; O2SAT 100
--- NOTE | 2021-05-05 01:42 | ED.GENADULT ---
HPI - General Adult General Chief complaint: Recheck/Abnormal Lab/Rx Stated complaint: SWELLING OF LEG, HTN, LOW PULSE Time Seen by Provider: 05/05/21 00:32 History of Present Illness HPI narrative: Patient is a 40-year-old female who presents ER with concerns for left jaw pain. Ongoing over the last week. She was seen by dentist without any findings of abscess or nerve/gum issue. Additionally she saw her PCP and she had no ear infection. The pain starts in her left ear and goes down her left jaw. She reports a couple days ago she did develop some new lesions over her left chin. No fevers or chills or sweats. Has pain with chewing. No swelling. Related Data Home Medications Medication Instructions Recorded Confirmed calcium carbonate-vitamin D3 1 tablet PO DAILY 02/29/20 02/29/20 [Oysco 500/D] glyburide 5 mg PO DAILY 02/29/20 02/29/20 metformin 750 mg PO BID 02/29/20 02/29/20 multivitamin 1 tablet PO DAILY 02/29/20 02/29/20 Allergies Allergy/AdvReac Type Severity Reaction Status Date / Time codeine Allergy Mild HIVES Verified 05/05/21 00:31 Review of Systems Constitutional: Constitutional: Denies chills, Denies fever(s) and Denies weakness ENT: Denies nasal congestion and Denies sore throat Comments: Left jaw pain and dental pain. Gastrointestinal: Gastrointestinal: Denies abdominal pain, Denies nausea and Denies vomiting PMFSH Past Medical History Medical History (Updated 05/05/21 @ 01:45 by Julio Cesar Dumont MD) Depression Diabetes mellitus with insulin therapy Genital herpes GERD (gastroesophageal reflux disease) History of PCOS Pancreatitis Peripheral neuropathy Seasonal rhinitis Surgical History Surgical History (Updated 02/29/20 @ 21:34 by Yarelis France DO) H/O section 01/2014 History of cholecystectomy History of dilation and curettage X3 Family History Family History (Updated 02/29/20 @ 21:31 by Yarelis France DO) Mother Diabetes mellitus Carcinoma of colon Grandparent Lung cancer Father Hypertension Heart attack Social History Social History (Updated 03/01/20 @ 02:35 by Yarelis France DO) Social History: Primary care physician: Dr. Juan Carlos Sosa Code status: Full code Smoking packs per day: 0.25 Smoking cigarettes per day: 5.0 Years smoked: 20 Smoking pack-years: 5.00 Smoking status: Former smoker Tobacco type: cigarettes Second hand tobacco smoke exposure: Yes Alcohol intake: current Alcohol use details: She drinks alcohol in moderation in on occasion. Approximately 1 drink every month or so. Substance use: never Substance use type: does not use Additional living arrangements comments: She lives at home with her 5 children and . She told nursing staff that she currently has 10 people living in her home. Her children range between 4 years of age and 17 years of age. She has been for 5 years but her and her have been together for 15 years. Additional occupation/education comments: She states that she is unemployed. 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 Gender identity (if verbalized by the patient): Female Spiritual care concerns: No Agree to blood products: Yes Exam Narrative: GENERAL: Well-appearing, well-nourished, and in no acute distress. HEAD: Normocephalic, atraumatic. ENT: Mucous membranes moist. Normal intraoral mucosa. Left [place] with shingles type rash. No lesions in the ear. TMs normal bilaterally. EXTREMITIES: Normal range of motion. No edema. NEURO: Alert and oriented x3. PSYCH: Normal mood and affect. Course Course Emergency Course: Discussed diagnosis and treatment plan. Discharge home. Vital Signs Vital signs: Vital Signs Temperature 97.4 F L 05/04/21 17:47 Pulse Rate 72 05/04/21 17:47 Respiratory Rate 20 05/04/21 17:47 Blood Pressure 168/82 H 05/04/21 17:47 Pulse Oximetry 99
[2021-05-05] MEDS: HYDROcodone/acetaminophen (*CRX) 5-325 MG TABLET 1 TAB PO (02:04)
[2021-05-05 02:05] VITALS: BP 152/70; PULSE 78; RESP 18; O2SAT 100
== END 2021-05-05 02:05 | disposition home or self-care (01) ==
PROVIDERS: Emergency Provider Emergency Medicine; PCP Emergency Medicine
DX: B02.9 Zoster without complications (principal); K21.9 Gastro-esophageal reflux disease without esophagitis; E28.2 Polycystic ovarian syndrome; E11.42 Type 2 diabetes mellitus with diabetic polyneuropathy; Z87.891 Personal history of nicotine dependence; Z79.4 Long term (current) use of insulin
CPT/HCPCS: 99283; A9270

== ENCOUNTER 2021-05-08 11:40 | Emergency (ER) | payer OTHER, SELFPAY ==
[2021-05-08 11:53] VITALS: BP 146/70; PULSE 69; RESP 16; TEMP 36.3; O2SAT 100
--- NOTE | 2021-05-08 12:01 | ED.GENADULT ---
HPI - General Adult General Chief complaint: Skin/Abscess/Foreign Body Stated complaint: SHINGLES Time Seen by Provider: 05/08/21 12:02 Source: patient and RN notes reviewed Mode of arrival: ambulatory Limitations: no limitations History of Present Illness HPI narrative: 40-year-old female presents to the [facility] after being diagnosed on the in the emergency room with shingles. States she has had continued pain. Patient reports that she went by and saw her primary care provider after being seen in the ER. States the hydrocodone is not doing anything for her pain. Related Data Home Medications Medication Instructions Recorded Confirmed calcium carbonate-vitamin D3 1 tablet PO DAILY 02/29/20 02/29/20 [Oysco 500/D] glyburide 5 mg PO DAILY 02/29/20 02/29/20 metformin 750 mg PO BID 02/29/20 02/29/20 multivitamin 1 tablet PO DAILY 02/29/20 02/29/20 amoxicillin 05/08/21 Allergies Allergy/AdvReac Type Severity Reaction Status Date / Time codeine Allergy Mild HIVES Verified 05/05/21 00:31 Review of Systems Review of Systems: All systems reviewed & are unremarkable except as noted in HPI and below Constitutional: Constitutional: Reports no additional constitutional complaints, Denies chills and Denies fever(s) Eyes: Eyes: Reports no additional eye complaints ENT: Reports system reviewed and no additional complaints, except as documented Cardiovascular: Cardiovascular: Reports no additional cardiovascular complaints Respiratory: Respiratory: Reports no additional respiratory complaints Gastrointestinal: Gastrointestinal: Reports no additional gastrointestinal complaints Genitourinary: Genitourinary: Reports no additional female genitourinary complaints Musculoskeletal: Musculoskeletal: Reports no additional musculoskeletal complaints Integumentary/Breasts: Skin/Breast: Reports as per HPI and Reports rash Neurologic: Reports system reviewed and no additional complaints, except as documented Psychiatric: Psychiatric: Reports no additional psychiatric complaints Allergic/Immunologic: Allergic/Immunologic: Reports no additional allergic/immunologic complaints [facility] Past Medical History Medical History Depression Diabetes mellitus with insulin therapy Genital herpes GERD (gastroesophageal reflux disease) History of PCOS Pancreatitis Peripheral neuropathy Seasonal rhinitis Surgical History Surgical History H/O section 01/2014 History of cholecystectomy History of dilation and curettage X3 Family History Family History Mother Diabetes mellitus Carcinoma of colon Grandparent Lung cancer Father Hypertension Heart attack Social History Social History Social History: Primary care physician: Dr. Juan Carlos Sosa Code status: Full code Smoking packs per day: 0.25 Smoking cigarettes per day: 5.0 Years smoked: 20 Smoking pack-years: 5.00 Smoking status: Former smoker Tobacco type: cigarettes Second hand tobacco smoke exposure: Yes Alcohol intake: current Alcohol use details: She drinks alcohol in moderation in on occasion. Approximately 1 drink every month or so. Substance use: never Substance use type: does not use Additional living arrangements comments: She lives at home with her 5 children and . She told nursing staff that she currently has 10 people living in her home. Her children range between 4 years of age and 17 years of age. She has been for 5 years but her and her have been together for 15 years. Additional occupation/education comments: She states that she is unemployed. 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 Gender identity (if verbalized by the patient): Canelo
== END 2021-05-08 12:36 | disposition home or self-care (01) ==
PROVIDERS: Emergency Provider Nurse Practitioner
DX: B02.9 Zoster without complications (principal); Z87.891 Personal history of nicotine dependence; K21.9 Gastro-esophageal reflux disease without esophagitis; E11.42 Type 2 diabetes mellitus with diabetic polyneuropathy; Z79.4 Long term (current) use of insulin
CPT/HCPCS: 99213; G0463

== ENCOUNTER 2021-05-24 22:08 | Emergency (ER) | payer OTHER, SELFPAY ==
[2021-05-24 22:23] VITALS: BP 152/85; PULSE 81; RESP 18; TEMP 36.4; O2SAT 100
--- NOTE | 2021-05-24 23:28 | ED.SKABFB ---
HPI - Skin/Abscess/Foreign Bdy General Chief complaint: Skin/Abscess/Foreign Body Stated complaint: rash Time Seen by Provider: 05/24/21 22:29 Source: patient Mode of arrival: ambulatory Limitations: no limitations History of Present Illness HPI narrative: This is 40 year old female who presents for evaluation of a rash. She developed itchy rash to her arm, legs and neck 1 week ago . She states she was started on steroids by her PCP for an allergic reaction. She reports her rash continues to spread. She also notes that her and kids have developed a rash as well. She denies fever, nausea, vomiting. This rash is inbetween her fingers. She denies travel or new exposures. Related Data Home Medications Medication Instructions Recorded Confirmed calcium carbonate-vitamin D3 1 tablet PO DAILY 02/29/20 02/29/20 [Oysco 500/D] glyburide 5 mg PO DAILY 02/29/20 02/29/20 metformin 750 mg PO BID 02/29/20 02/29/20 multivitamin 1 tablet PO DAILY 02/29/20 02/29/20 amoxicillin 05/08/21 Allergies Allergy/AdvReac Type Severity Reaction Status Date / Time codeine Allergy Mild HIVES Verified 05/24/21 23:05 Review of Systems Review of Systems: All systems reviewed & are unremarkable except as noted in HPI and below PMFSH Past Medical History Medical History Depression Diabetes mellitus with insulin therapy Genital herpes GERD (gastroesophageal reflux disease) History of PCOS Pancreatitis Peripheral neuropathy Seasonal rhinitis Surgical History Surgical History H/O section 01/2014 History of cholecystectomy History of dilation and curettage X3 Family History Family History Mother Diabetes mellitus Carcinoma of colon Grandparent Lung cancer Father Hypertension Heart attack Social History Social History Social History: Primary care physician: Dr. Juan Carlos Sosa Code status: Full code Smoking packs per day: 0.25 Smoking cigarettes per day: 5.0 Years smoked: 20 Smoking pack-years: 5.00 Smoking status: Former smoker Tobacco type: cigarettes Second hand tobacco smoke exposure: Yes Alcohol intake: current Alcohol use details: She drinks alcohol in moderation in on occasion. Approximately 1 drink every month or so. Substance use: never Substance use type: does not use Additional living arrangements comments: She lives at home with her 5 children and . She told nursing staff that she currently has 10 people living in her home. Her children range between 4 years of age and 17 years of age. She has been for 5 years but her and her have been together for 15 years. Additional occupation/education comments: She states that she is unemployed. 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 Gender identity (if verbalized by the patient): Female Spiritual care concerns: No Agree to blood products: Yes Exam Const: General: no acute distress and alert Orientation/consciousness: patient oriented x3 Eyes: EOM: EOMs intact bilaterally Chest: Chest palpation & inspection: normal inspection of the chest Resp: Effort & Inspection: normal respiratory effort Skin: Other: right arm with erthematous singular lesions with scabs from patient's scratching. Neuro: General: patient oriented x3 and moves all extremities Course Reevaluation(s) Reevaluation #1: I Discussed with patient this appears to likely due to some kind of insect bites. she may have scabies or bed bugs. I have discussed treatment with patient. Date: 05/24/21 Time: 23:31 Vital Signs Vital signs: Vital Signs Temperature 97.5 F L 05/24/21 22:23 Pulse Rate 81 05/24/21 22:23 Respiratory Rate 18 05/24/21 22
[2021-05-24] MEDS: hydrOXYzine HCL 25 MG TABLET 50 MG PO (23:44)
[2021-05-24 23:45] VITALS: BP 123/78; PULSE 88; RESP 17; O2SAT 97
== END 2021-05-24 23:45 | disposition home or self-care (01) ==
PROVIDERS: Emergency Provider General Practice
DX: L30.9 Dermatitis, unspecified (principal); E11.42 Type 2 diabetes mellitus with diabetic polyneuropathy; K21.9 Gastro-esophageal reflux disease without esophagitis; E28.2 Polycystic ovarian syndrome; Z87.891 Personal history of nicotine dependence; Z79.4 Long term (current) use of insulin
CPT/HCPCS: 99283; A9270

== ENCOUNTER 2021-07-22 09:56 | Outpatient (CLI) | payer OTHER, SELFPAY ==
--- NOTE | ~2021-07-22 | US_ITS ---
EXAMINATION: US OB <=14 wk fetus w TV DATE: 07/22/2021 10:41 INDICATION: First trimester viability assessment TECHNIQUE: Real-time pelvic transabdominal and transvaginal ultrasound was performed. COMPARISON: None. FINDINGS: The uterus measures 11.3 x 4.7 x 7.0 cm. There is an intrauterine gestational sac. A yolk sac is identified. The cervical length measures 3.4 cm. heart motion is identified measuring 13 5 beats per minute (bpm) by M-mode Doppler. The crown rump length measures 9 mm , which correla pamela with an estimated gestational age of 7 weeks and 0 day(s) (+/-) 4 day(s). The ovaries are not visualized however no adnexal abnormality is seen. There is no free fluid in the pelvis. IMPRESSION: 1. Live intrauterine with an estimated gestational age of 7 weeks and 0 day(s) (+/-) 4 day( s) and an estimated delivery date of 03/10/2022. Reviewed, dictated and finalized at location B. IMPRESSION: 1. Live intrauterine with an estimated gestational age of 7 weeks and 0 day(s) (+/-) 4 day(s) and an estimated delivery date of 03/10/2022.
== END 2021-07-22 09:57 | disposition home or self-care (01) ==
LOC: ANHIMG 10:02
PROVIDERS: PCP Emergency Medicine; Visit Provider Obstetrics & Gynecology
DX: O34.31 Maternal care for cervical incompetence, first trimester (principal); Z3A.01 Less than 8 weeks gestation of pregnancy
CPT/HCPCS: 76801; 76817

== ENCOUNTER 2021-08-01 19:04 | Emergency (ER) | payer OTHER, SELFPAY ==
[2021-08-01 19:10] VITALS: BP 157/77; PULSE 93; RESP 18; TEMP 36.4; O2SAT 99
[2021-08-01] MEDS: SODIUM CHLORIDE 0.9% IV 1,000 ML 999 ML IV CONT (20:07)
[2021-08-01] MEDS: MORPHINE SULFATE (*CRX) 4 MG/ML INJ IV PUSH ×2 (20:08→23:14)
[2021-08-01 20:29] LABS: Basophils Percent Auto 0.4 % (0.2-1.2); Eosinophils Absolute Auto 0.1 K/mm3 (0-0.3); Eosinophils Percent Auto 1.2 % (0-4.4); Hemoglobin 14.7 g/dL (12.0-15.0); Immature Granulocyte Absolute 0.04 K/mm3 (0.00-0.031); Immature Granulocyte Percent A 0.4 % (0-0.5); Lymphocytes Absolute Auto 3.54 K/mm3 (0.9-3.2); Mean Corpuscular HGB Conc 36.8 g/dl (32-36); Mean Corpuscular Volume 95.2 fl (80-100); Mean Platelet Volume 9.8 fl (7.4-10.4); Monocytes Absolute Auto 0.5 K/mm3 (0.1-0.6); Monocytes Percent Auto 4.4 % (2.6-8.5); Neutrophils Absolute Auto 5.9 K/mm3 (1.3-6.7); Neutrophils Percent Auto 58.6 % (45.5-73.1); Platelet Count Result 210 k/mm3 (150-375); Red Cell Distribution Width 11.9 % (11.5-14.5); White Blood Count 10.1 K/mm3 (4.5-10.0)
[2021-08-01 20:32] LABS: Add Urine Microscopic? YES; Appearance Urine Clear (Clear); Bacteria Urine Trace /hpf; Bilirubin Urine Negative (Negative); Blood Urine Negative (Negative); Color Urine Yellow (Yellow); Glucose Urine UA 2+ mg/dL (Negative); Ketones Urine 1+ mg/dL (Negative); Leukocyte Esterase Ur Trace LEU/UL (Negative); Mucus Urine Rare /lpf; Nitrate Urine Negative (Negative); Protein Urine Negative (Negative); RBC Urine 0-2 /hpf (0-2); Specific Grav Ur 1.017 (1.001-1.035); Squamous Epithelial Cell Urine Few /hpf (Few); Urobilinogen Urine Negative mg/dL (<2.0); WBC Urine 0-3 /hpf
[2021-08-01 21:05] LABS: Alanine Aminotransferase 16 U/L (4-35); Albumin Level 4.6 g/dL (3.5-5.1); Alkaline Phosphatase 105 U/L (38-126); Anion Gap 14 mmol/L (8-16); Aspartate Amino Transferase 29 U/L (14-36); Bilirubin,Total 0.5 mg/dL (0.2-1.3); Blood Urea Nitrogen 19 mg/dL (7-17); Carbon Dioxide 17 mmol/L (22-30); Chloride 105 mmol/L (98-107); Estimated CRCL calculation 109 ml/min; Estimated Glomerular Filt Rate > 60; Glucose 168 mg/dL (65-110); Potassium 3.9 mmol/L (3.4-5.0); Sodium 136 mmol/L (137-145)
--- NOTE | 2021-08-01 21:14 | ED.GENADULT ---
HPI - General Adult General Chief complaint: Recheck/Abnormal Lab/Rx Stated complaint: 8 weeks preg, abd pain Time Seen by Provider: 08/01/21 19:43 History of Present Illness HPI narrative: Patient 41-year-old female presents the emergency department with chief complaint of abdominal cramping. The patient reports she was seen at [place] the last 48 hours and told that she had a threatened miscarriage. Patient reports that she has been having abdominal cramping denies bleeding denies discharge. The patient states that G 10 P4. 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 Patient reports symptoms not improve by anything or they worsened by anything. Related Data Home Medications Medication Instructions Recorded Confirmed metformin 750 mg PO BID 02/29/20 02/29/20 multivitamin 1 tablet PO DAILY 02/29/20 02/29/20 Allergies Allergy/AdvReac Type Severity Reaction Status Date / Time codeine Allergy Mild HIVES Verified 08/01/21 19:53 Review of Systems Review of Systems: A 10 system review of systems was completed on the patient and is negative except for what is stated in the HPI. Nursing and ancillary documentation was reviewed. [facility] Past Medical History Medical History Depression Diabetes mellitus with insulin therapy Genital herpes GERD (gastroesophageal reflux disease) History of PCOS Pancreatitis Peripheral neuropathy Seasonal rhinitis Surgical History Surgical History H/O section 01/2014 History of cholecystectomy History of dilation and curettage X3 Family History Family History Mother Diabetes mellitus Carcinoma of colon Grandparent Lung cancer Father Hypertension Heart attack Social History Social History Social History: Primary care physician: Dr. Juan Carlos Sosa Code status: Full code Smoking packs per day: 0.25 Smoking cigarettes per day: 5.0 Years smoked: 20 Smoking pack-years: 5.00 Smoking status: Former smoker Tobacco type: cigarettes Second hand tobacco smoke exposure: Yes Alcohol intake: current Alcohol use details: She drinks alcohol in moderation in on occasion. Approximately 1 drink every month or so. Substance use: never Substance use type: does not use Additional living arrangements comments: She lives at home with her 5 children and . She told nursing staff that she currently has 10 people living in her home. Her children range between 4 years of age and 17 years of age. She has been for 5 years but her and her have been together for 15 years. Additional occupation/education comments: She states that she is unemployed. 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 Gender identity (if verbalized by the patient): Female Spiritual care concerns: No Agree to blood products: Yes Exam Narrative: GENERAL: Well-appearing, well-nourished, and in no acute distress. HEAD: Normocephalic, atraumatic. EYES: PERRLA and EOMI. ENT: Nares clear, no rhinorrhea or epistaxis. Mucous membranes moist. NECK: Supple. CHEST: Clear to auscultation. No respiratory distress. HEART: Regular rate and rhythm. No murmur heard. Normal peripheral pulses. ABDOMEN: Soft, nontender, nondistended, normal active bowel sounds. EXTREMITIES: Normal range of motion. No edema. SKIN: Warm, dry, no rash. NEURO: No focal deficits. Alert and oriented x3. PSYCH: Normal mood and affect. Course Vital Signs Vital signs: Vital Signs Temperature 36.4 C 08/01/21 19:10 Pulse Rate 93 08/01/21 19:10 Respiratory Rate 18 08/01/21 19:10 Blood Pressure 157/77 H 08/01/21 19:10 Pulse Oximetry 99 08/01/21 19:10
[2021-08-01 23:15] VITALS: BP 118/63; PULSE 82; RESP 18; O2SAT 99
[2021-08-01 23:51] VITALS: BP 115/56; PULSE 76; RESP 18; O2SAT 98
== END 2021-08-01 23:54 | disposition home or self-care (01) ==
PROVIDERS: Emergency Provider Emergency Medicine; PCP Emergency Medicine
DX: O20.0 Threatened abortion (principal); O99.341 Other mental disorders complicating pregnancy, first trimester; F32.A Depression, unspecified; O24.911 Unspecified diabetes mellitus in pregnancy, first trimester; O99.281 Endocrine, nutritional and metabolic diseases complicating pregnancy, first trimester; E28.2 Polycystic ovarian syndrome; E11.42 Type 2 diabetes mellitus with diabetic polyneuropathy; Z3A.08 8 weeks gestation of pregnancy; Z87.19 Personal history of other diseases of the digestive system; Z90.49 Acquired absence of other specified parts of digestive tract; Z87.891 Personal history of nicotine dependence; Z87.59 Personal history of other complications of pregnancy, childbirth and the puerperium; Z88.5 Allergy status to narcotic agent
CPT/HCPCS: 36415; 80053; 81001; 84702; 85025; 85461; 96361; 96374; 96376; 99284; J2270; J7030

== ENCOUNTER 2022-03-15 19:08 | Emergency (ER) | payer OTHER, SELFPAY ==
[2022-03-15] VITALS (14 sets, daily range): BP systolic 119–148; BP diastolic 59–85; PULSE 10–83; RESP 18–20; TEMP 36.7; O2SAT 95–100
--- NOTE | ~2022-03-15 | XR_ITS ---
EXAM: XR tibia fibula LT 2V DATE: 03/15/2022 21:44 HISTORY: leg swelling . COMPARISON: None available. FINDINGS: Normal mineralization. No fracture or dislocation. No lytic or blastic lesion. Joint space s are maintained. No erosion or periosteal change. Soft tissues within normal limits. IMPRESSION: No acute osseous finding in the left tibia or fibula. Reviewed, dictated and finalized at location K.
--- NOTE | 2022-03-15 20:46 | ED.EXTPRO ---
HPI - Extremity Problem General Chief complaint: Extremity Problem,Nontraumatic Stated complaint: left leg swelling Time Seen by Provider: 03/15/22 20:45 History of Present Illness HPI Narrative: 41-year-old female presented to the emergency room for evaluation of left lower leg pain. Patient states that she developed left calf pain and swelling 3 days ago. Patient states that she is unable to ambulate on a due to the pain. 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 Patient any denies any history of DVT/PE, cancer, and is not on control. Denies any injury or trauma. Patient also endorses discoloration of her left lower extremity Related Data Home Medications Medication Instructions Recorded Confirmed metformin 750 mg tablet,extended 750 mg PO BID 02/29/20 02/29/20 release 24 hr multivitamin 1 tablet PO DAILY 02/29/20 02/29/20 Allergies Allergy/AdvReac Type Severity Reaction Status Date / Time codeine Allergy Mild HIVES Verified 08/01/21 19:53 Review of Systems Review of Systems: CONSTITUTIONAL: Denies fever, chills, or sweats. EYES: Denies visual changes, redness, or discharge. ENT: Denies rhinorrhea, congestion, sore throat, or otalgia. CARDIOVASCULAR: Denies chest pain, palpitations, or edema. RESPIRATORY: Denies cough or dyspnea. GASTROINTESTINAL: Denies abdominal pain, nausea, vomiting, or diarrhea. GENITOURINARY: Denies dysuria or hematuria. SKIN: Denies rash or itching. MUSCULOSKELETAL: Reports left lower leg pain NEUROLOGIC: Denies headache, numbness, dizziness, or weakness. PSYCHIATRIC: Denies anxiety or depression. [facility] Past Medical History Medical History Depression Diabetes mellitus with insulin therapy Genital herpes GERD (gastroesophageal reflux disease) History of PCOS Pancreatitis Peripheral neuropathy Seasonal rhinitis Surgical History Surgical History H/O section 01/2014 History of cholecystectomy History of dilation and curettage X3 Family History Family History Mother Diabetes mellitus Carcinoma of colon Grandparent Lung cancer Father Hypertension Heart attack Social History Social History Social History: Primary care physician: Dr. Juan Carlos Sosa Code status: Full code Smoking packs per day: 0.25 Smoking cigarettes per day: 5.0 Years smoked: 20 Smoking pack-years: 5.00 Smoking status: Former smoker Tobacco type: cigarettes Second hand tobacco smoke exposure: Yes Alcohol intake: current Alcohol use details: She drinks alcohol in moderation in on occasion. Approximately 1 drink every month or so. Substance use: never Substance use type: does not use Additional living arrangements comments: She lives at home with her 5 children and . She told nursing staff that she currently has 10 people living in her home. Her children range between 4 years of age and 17 years of age. She has been for 5 years but her and her have been together for 15 years. Additional occupation/education comments: She states that she is unemployed. 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 Gender identity (if verbalized by the patient): Female Spiritual care concerns: No Agree to blood products: Yes Exam Narrative: GENERAL: Well-appearing, well-nourished, no physical limitations, and in no acute distress. HEAD: Normocephalic, atraumatic. EYES: Conjunctivae normal, PERRLA and EOMI. CHEST: Clear to auscultation. No respiratory distress. No wheezes rales or rhonchi. No tenderness. HEART: Regular rate and rhythm. No murmur heard. Normal peripheral pulses. EXTREMITIES: Left leg: Exquisite tenderness to the left calf,
[2022-03-15 21:08] LABS: Basophils Percent Auto 0.3 % (0.2-1.2); Eosinophils Absolute Auto 0.2 K/mm3 (0-0.3); Eosinophils Percent Auto 2.5 % (0-4.4); Hematocrit 36.8 % (37.0-47.0); Hemoglobin 12.9 g/dL (12.0-15.0); Immature Granulocyte Absolute 0.02 K/mm3 (0.00-0.031); Immature Granulocyte Percent A 0.3 % (0-0.5); Lymphocytes Absolute Auto 2.61 K/mm3 (0.9-3.2); Mean Corpuscular HGB Conc 35.1 g/dl (32-36); Mean Corpuscular Hemoglobin 33.2 pg (26-34); Mean Corpuscular Volume 94.8 fl (80-100); Monocytes Absolute Auto 0.5 K/mm3 (0.1-0.6); Monocytes Percent Auto 6.9 % (2.6-8.5); Neutrophils Absolute Auto 3.3 K/mm3 (1.3-6.7); Platelet Count Result 154 k/mm3 (150-375); Red Blood Count 3.88 M/mm3 (4.2-5.4); Red Cell Distribution Width 12.7 % (11.5-14.5); White Blood Count 6.5 K/mm3 (4.5-10.0)
[2022-03-15 21:16] LABS: Alanine Aminotransferase 23 U/L (6-35); Albumin Level 4.3 g/dL (3.5-5.1); Alkaline Phosphatase 121 U/L (38-126); Anion Gap 5 mmol/L (8-16); Aspartate Amino Transferase 27 U/L (14-36); Bilirubin,Total 0.3 mg/dL (0.2-1.3); Blood Urea Nitrogen 12 mg/dL (7-17); Calcium 9.1 mg/dL (8.4-10.2); Carbon Dioxide 28 mmol/L (22-30); Chloride 101 mmol/L (98-107); Estimated CRCL calculation 89 ml/min; Estimated Glomerular Filt Rate > 60; Glucose 336 mg/dL (65-110); Potassium 4.1 mmol/L (3.4-5.0); Sodium 134 mmol/L (137-145)
[2022-03-15 21:21] LABS: D Dimer 0.47 ug/mL (<0.48)
[2022-03-15] MEDS: INSULIN HUMAN REGULAR (*BKC) 100 UNITS/ML 8 UNITS SUB-Q (21:53)
[2022-03-15] MEDS: HYDROcodone/acetaminophen (*CRX) 5-325 MG TABLET 1 TAB PO (22:09)
[2022-03-15 22:19] LABS: Appearance Urine Clear (Clear); Bilirubin Urine Negative (Negative); Blood Urine Negative (Negative); Color Urine Yellow (Yellow); Glucose Urine UA 3+ mg/dL (Negative); Ketones Urine Negative (Negative); Leukocyte Esterase Ur Negative LEU/UL (Negative); Nitrate Urine Negative (Negative); Protein Urine Negative (Negative); Specific Grav Ur 1.015 (1.001-1.035)
[2022-03-15 22:24] LABS: Add Urine Microscopic? YES; Mucus Urine Rare /lpf; RBC Urine 0-2 /hpf (0-2); Squamous Epithelial Cell Urine Occasional /hpf (Few); WBC Urine 0-3 /hpf
== END 2022-03-15 22:56 | disposition home or self-care (01) ==
PROVIDERS: Emergency Provider Nurse Practitioner Family; PCP Emergency Medicine
DX: M79.662 Pain in left lower leg (principal); E11.42 Type 2 diabetes mellitus with diabetic polyneuropathy; K21.9 Gastro-esophageal reflux disease without esophagitis; E28.2 Polycystic ovarian syndrome; Z87.891 Personal history of nicotine dependence; Z79.4 Long term (current) use of insulin; Z79.84 Long term (current) use of oral hypoglycemic drugs
CPT/HCPCS: 36415; 73590; 80053; 81001; 85025; 85380; 99283; A9270; J1815

== ENCOUNTER 2022-03-31 14:35 | Outpatient (CLI) | payer OTHER, SELFPAY ==
[2022-03-31 15:10] LABS: Alanine Aminotransferase 26 U/L (6-35); Albumin Level 4.7 g/dL (3.5-5.1); Alkaline Phosphatase 133 U/L (38-126); Anion Gap 8 mmol/L (8-16); Aspartate Amino Transferase 30 U/L (14-36); Bilirubin,Total 0.6 mg/dL (0.2-1.3); Blood Urea Nitrogen 12 mg/dL (7-17); Calcium 9.2 mg/dL (8.4-10.2); Carbon Dioxide 24 mmol/L (22-30); Chloride 103 mmol/L (98-107); Estimated Glomerular Filt Rate > 60; Glucose 268 mg/dL (65-110); Lipase 159 U/L (23-300); Potassium 4.1 mmol/L (3.4-5.0); Sodium 135 mmol/L (137-145)
[2022-03-31 15:13] LABS: Hemoglobin A1C 10.4 % (<5.7)
[2022-03-31 15:39] LABS: Free T4 Free Thyroxine 1.07 ng/mL (0.78-2.19)
[2022-03-31 15:49] LABS: Creatinine Urine 68.7 mg/dL
[2022-04-04 04:55] LABS: Thyroid Peroxidase Antibodies 2 IU/mL (<9)
== END 2022-03-31 14:36 | disposition home or self-care (01) ==
PROVIDERS: PCP Emergency Medicine; Visit Provider Internal Medicine Endocrinology, Diabetes & Metabolism
DX: E11.65 Type 2 diabetes mellitus with hyperglycemia (principal); E06.3 Autoimmune thyroiditis; E78.2 Mixed hyperlipidemia
CPT/HCPCS: 36415; 80053; 82570; 83036; 83690; 84439; 84443; 84480; 86376

== ENCOUNTER 2023-06-19 17:24 | Emergency (ER) | payer OTHER, MEDICAID, SELFPAY ==
--- NOTE | ~2023-06-19 | XR_ITS ---
EXAMINATION: XR chest 1V portable Exam Date/Time: 06/19/2023 18:57 CDT HISTORY: cough, exposure to covid Comparison: 02/29/2020. RESULT: Lines, tubes, and devices: None. Lungs and pleura: Clear. Cardiomediastinal silhouette: Stable. Other: No acute osseous or upper abdominal finding. IMPRESSION: No acute cardiopulmonary process. Reviewed, dictated and finalized at location K.
[2023-06-19 18:29] VITALS: BP 150/77; PULSE 87; RESP 16; TEMP 36.4; O2SAT 100
[2023-06-19 19:21] LABS: Influenza A QL RT-PCR Negative (Negative); Influenza B QL RT-PCR Negative (Negative); RSV RNA, RT-PCR Negative (Negative); SARS-CoV-2 RNA PCR Negative (Negative)
--- NOTE | 2023-06-19 19:38 | ED.URI ---
HPI - URI/Sore Throat General Chief Complaint: Upper Respiratory Infection Stated Complaint: chills. exposed to covid Time Seen by Provider: 06/19/23 18:51 Source: patient Mode of arrival: ambulatory Limitations: no limitations History of Present Illness HPI Narrative: Patient is a 43-year-old female who presents ED with concern for COVID. Patient reports she [facility] went [facility] a [facility]. She returned home Tuesday and began feeling ill yesterday. She complains of chills, myalgias, headache, cough, heavy breathing. She states her friend tested positive for COVID-19 today and patient would like to be tested. Patient has not tried anything for symptoms. She denies any documented fever. Denies shortness of breath. Denies chest pain. Denies nausea, vomiting, abdominal pain. Related Data Home Medications Medication Instructions Recorded Confirmed metformin 750 mg tablet,extended 750 mg PO BID 02/29/20 02/29/20 release 24 hr multivitamin 1 tablet PO DAILY 02/29/20 02/29/20 Allergies Allergy/AdvReac Type Severity Reaction Status Date / Time codeine Allergy Mild HIVES Verified 06/19/23 18:30 Review of Systems Review of Systems: CONSTITUTIONAL: See HPI. ENT: Denies rhinorrhea, congestion, sore throat. CARDIOVASCULAR: Denies chest pain. RESPIRATORY:. GASTROINTESTINAL: Denies abdominal pain, nausea, vomiting, or diarrhea. GENITOURINARY: Denies dysuria or hematuria. SKIN: Denies rash or itching. MUSCULOSKELETAL: Reports myalgia. NEUROLOGIC: See HPI. All systems reviewed & are unremarkable except as noted in HPI and below PMFSH Past Medical History Medical History Depression Diabetes mellitus with insulin therapy Genital herpes GERD (gastroesophageal reflux disease) History of PCOS Pancreatitis Peripheral neuropathy Seasonal rhinitis Surgical History Surgical History H/O section 01/2014 History of cholecystectomy History of dilation and curettage X3 Family History Family History Mother Diabetes mellitus Carcinoma of colon Grandparent Lung cancer Father Hypertension Heart attack Social History Social History Social History: Primary care physician: Dr. Juan Carlos Sosa Code status: Full code Smoking packs per day: 0.25 Smoking cigarettes per day: 5.0 Years smoked: 20 Smoking pack-years: 5.00 Smoking status: Former smoker Tobacco type: cigarettes Second hand tobacco smoke exposure: Yes Alcohol intake: current Alcohol use details: She drinks alcohol in moderation in on occasion. Approximately 1 drink every month or so. Substance use: never Substance use type: does not use Living arrangements: with family Additional living arrangements comments: She lives at home with her 5 children and . She told nursing staff that she currently has 10 people living in her home. Her children range between 4 years of age and 17 years of age. She has been for 5 years but her and her have been together for 15 years. Occupation/Education: occupation Additional occupation/education comments: She states that she is unemployed. 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 Gender identity (if verbalized by the patient): Female Spiritual care concerns: No Agree to blood products: Yes Exam Narrative: GENERAL: Mildly ill appearing, well-nourished, non-toxic, in no acute distress. HEAD: Normocephalic, atraumatic. ENT: MMs slightly dry. No significant posterior pharynx erythema. No tonsillar hypertrophy or exudate. Uvula midline. NECK: Supple. No adenopathy, no masses. RESPIRATORY: Airway patent, respirations nonlabored. Clear to auscultation bilaterally,
[2023-06-19] MEDS: IBUPROFEN 600 MG TABLET PO (19:48)
[2023-06-19] MEDS: ACETAMINOPHEN 500 MG TABLET 1000 MG PO (19:48)
[2023-06-19 20:16] VITALS: BP 150/87; PULSE 67; RESP 18; O2SAT 99
== END 2023-06-19 20:18 | disposition home or self-care (01) ==
PROVIDERS: Emergency Medicine; Emergency Provider Physician Assistant
DX: B34.9 Viral infection, unspecified (principal); Z20.822 Contact with and (suspected) exposure to COVID-19; E28.2 Polycystic ovarian syndrome; E11.42 Type 2 diabetes mellitus with diabetic polyneuropathy; K21.9 Gastro-esophageal reflux disease without esophagitis; Z90.49 Acquired absence of other specified parts of digestive tract; Z87.891 Personal history of nicotine dependence; Z79.84 Long term (current) use of oral hypoglycemic drugs; Z79.4 Long term (current) use of insulin
CPT/HCPCS: 71045; 87637; 99283; A9270

== ENCOUNTER 2023-11-03 11:28 | Emergency (ER) | payer OTHER, MEDICAID, SELFPAY ==
--- NOTE | ~2023-11-03 | XR_ITS ---
EXAMINATION: XR chest 1V portable DATE: 11/03/2023 17:12 INDICATION: Shortness of breath. Cough. Chest pain. TECHNIQUE: A single frontal view of the chest was obtained. COMPARISON: Chest single view 06/19/2023 FINDINGS: There is no pneumonia, pleural effusion, or pneumothorax. The heart size is normal. IMPRESSION: 1. No acute cardiopulmonary disease. Reviewed, dictated and finalized at location A. [employer]
[2023-11-03 11:32] VITALS: BP 132/55; PULSE 74; RESP 20; TEMP 36.4; O2SAT 100
[2023-11-03 11:35] LABS: Glucose Point of Care 396 mg/dl (65-105)
[2023-11-03 14:36] LABS: Basophils Percent Auto 0.3 % (0.2-1.2); Eosinophils Absolute Auto 0.1 K/mm3 (0-0.3); Eosinophils Percent Auto 1.2 % (0-4.4); Hematocrit 35.4 % (37.0-47.0); Hemoglobin 12.3 g/dL (12.0-15.0); Immature Granulocyte Absolute 0.02 K/mm3 (0.00-0.031); Immature Granulocyte Percent A 0.3 % (0-0.5); Lymphocytes Absolute Auto 2.41 K/mm3 (0.9-3.2); Lymphocytes Percent Auto 35.8 % (18.3-44.2); Mean Corpuscular HGB Conc 34.7 g/dl (32-36); Mean Corpuscular Hemoglobin 33.2 pg (26-34); Mean Corpuscular Volume 95.7 fl (80-100); Mean Platelet Volume 9.7 fl (7.4-10.4); Monocytes Absolute Auto 0.4 K/mm3 (0.1-0.6); Monocytes Percent Auto 6.2 % (2.6-8.5); Neutrophils Absolute Auto 3.8 K/mm3 (1.3-6.7); Neutrophils Percent Auto 56.2 % (45.5-73.1); Platelet Count Result 167 k/mm3 (150-375); Red Cell Distribution Width 11.9 % (11.5-14.5); White Blood Count 6.7 K/mm3 (4.5-10.0)
--- NOTE | 2023-11-03 14:43 | ED.GENADULT ---
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 Patient states that within the last few days she has been having bilateral ear pain, chills, headaches, lightheadedness, and a nonproductive cough. Symptoms started earlier this week on Tuesday. Patient denies any room spinning sensation. She denies any sick contacts at home or exposure to any COVID/influenza spur she is aware. Patient is currently denying any chest pain or shortness of breath, denies any nausea, vomiting, abdominal pain, dysuria, hematuria, constipation, diarrhea, melena, hematochezia, fevers or chills. Patient also denies any focal weakness, numbness and tingling. There are no other modifying, alleviating, or precipitating factors at this time. Related Data Home Medications Medication Instructions Recorded Confirmed metformin 750 mg tablet,extended 750 mg PO BID 02/29/20 02/29/20 release 24 hr multivitamin 1 tablet PO DAILY 02/29/20 02/29/20 Allergies Allergy/AdvReac Type Severity Reaction Status Date / Time codeine Allergy Mild HIVES Verified 06/19/23 18:30 Review of Systems Review of Systems: All systems are reviewed and are negative unless stated otherwise in the HPI. [facility] Past Medical History Medical History Depression Diabetes mellitus with insulin therapy Genital herpes GERD (gastroesophageal reflux disease) History of PCOS Pancreatitis Peripheral neuropathy Seasonal rhinitis Surgical History Surgical History H/O section 01/2014 History of cholecystectomy History of dilation and curettage X3 Family History Family History Mother Diabetes mellitus Carcinoma of colon Grandparent Lung cancer Father Hypertension Heart attack Social History Social History Social History: Primary care physician: Dr. Juan Carlos Sosa Code status: Full code Smoking packs per day: 0.25 Smoking cigarettes per day: 5.0 Years smoked: 20 Smoking pack-years: 5.00 Smoking status: Former smoker Tobacco type: cigarettes Second hand tobacco smoke exposure: Yes Alcohol intake: current Alcohol use details: She drinks alcohol in moderation in on occasion. Approximately 1 drink every month or so. Substance use: never Substance use type: does not use Living arrangements: with family Additional living arrangements comments: She lives at home with her 5 children and . She told nursing staff that she currently has 10 people living in her home. Her children range between 4 years of age and 17 years of age. She has been for 5 years but her and her have been together for 15 years. Occupation/Education: occupation Additional occupation/education comments: She states that she is unemployed. 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 Gender identity (if verbalized by the patient): Female Spiritual care concerns: No Agree to blood products: Yes Exam Narrative: General: Alert, awake, afebrile, in no acute distress. HEENT: PERRL, no rhinorrhea, no post nasal drip, oropharynx clear, bilateral tympanic membrane bulging, right worse than left, no urothelium a. Neck: Trachea midline, no JVD, no lymphadenopathy. Cardiovascular: Regular rate and rhythm, no murmurs, rubs or gallops, no peripheral edema. Respiratory: Clear to auscultation bilaterally, no tachypnea, no wheezing, no rhonchi, no rubs, no respiratory distress. Abdomen: Soft, nontender, nondistended, no re
[2023-11-03] MEDS: SODIUM CHLORIDE 0.9% IV 1,000 ML 150 ML IV CONT (15:07)
[2023-11-03 15:10] VITALS: BP 147/84; PULSE 77; RESP 20; O2SAT 99
[2023-11-03 15:10] LABS: Beta-Hydroxybutyrate/Acetoacetate 0.08 mmol/L (0.02-0.27)
[2023-11-03 15:16] VITALS: BP 152/78; PULSE 78; RESP 20; O2SAT 98
[2023-11-03 15:31] LABS: Influenza A QL RT-PCR Negative (Negative); Influenza B QL RT-PCR Negative (Negative); RSV RNA, RT-PCR Negative (Negative); SARS-CoV-2 RNA PCR Negative (Negative)
[2023-11-03 15:32] VITALS: BP 144/74; PULSE 77; RESP 22; O2SAT 98
[2023-11-03 15:44] LABS: Appearance Urine Clear (Clear); Bilirubin Urine Negative (Negative); Blood Urine Negative (Negative); Color Urine Yellow (Yellow); Glucose Urine UA 3+ mg/dL (Negative); Ketones Urine Negative (Negative); Leukocyte Esterase Ur Negative LEU/UL (Negative); Nitrate Urine Negative (Negative); Protein Urine Negative (Negative); Specific Grav Ur 1.034 (1.001-1.035); Urobilinogen Urine 0.2 mg/dL (<2.0)
[2023-11-03 15:53] LABS: Add Urine Microscopic? NO
[2023-11-03 16:16] VITALS: BP 153/80; PULSE 78; RESP 20; O2SAT 98
[2023-11-03 16:30] LABS: Alanine Aminotransferase 21 U/L (6-35); Albumin Level 3.9 g/dL (3.5-5.1); Alkaline Phosphatase 119 U/L (38-126); Anion Gap 7 mmol/L (8-16); Aspartate Amino Transferase 35 U/L (14-36); Bilirubin,Total 0.3 mg/dL (0.2-1.3); Blood Urea Nitrogen 16 mg/dL (7-17); Calcium 8.9 mg/dL (8.4-10.2); Carbon Dioxide 25 mmol/L (22-30); Chloride 101 mmol/L (98-107); Estimated CRCL calculation 115 ml/min; Estimated Glomerular Filt Rate > 60; Glucose 443 mg/dL (65-110); Magnesium 1.8 mg/dL (1.6-2.3); Phosphorus 2.6 mg/dL (2.5-4.5); Sodium 133 mmol/L (137-145)
[2023-11-03 17:00] VITALS: BP 123/66; PULSE 74; RESP 10; O2SAT 98
== END 2023-11-03 17:45 | disposition home or self-care (01) ==
PROVIDERS: Student in an Organized Health Care Education/Training Program; Emergency Provider Emergency Medicine
DX: B34.9 Viral infection, unspecified (principal); H66.93 Otitis media, unspecified, bilateral; Z20.822 Contact with and (suspected) exposure to COVID-19; E11.42 Type 2 diabetes mellitus with diabetic polyneuropathy; E28.2 Polycystic ovarian syndrome; K21.9 Gastro-esophageal reflux disease without esophagitis; Z87.891 Personal history of nicotine dependence; Z90.49 Acquired absence of other specified parts of digestive tract; Z79.4 Long term (current) use of insulin; Z79.84 Long term (current) use of oral hypoglycemic drugs
CPT/HCPCS: 36415; 71045; 80053; 81003; 81025; 82010; 82948; 83735; 84100; 85025; 87637; 96360; 96361; 99283; J7030

== ENCOUNTER 2024-03-01 13:39 | Emergency (ER) | payer OTHER, MEDICAID, SELFPAY ==
--- NOTE | ~2024-03-01 | CT_ITS ---
EXAMINATION: CT thoracic lumbar wo con DATE: 03/01/2024 14:20 INDICATION: Back pain post fall TECHNIQUE: Computed tomography (CT) of the thoracic and lumbar spine was performed without intravenou s contrast. Automated exposure control and iterative reconstruction technique were employed. The dose -length product was 842.46 mGy-cm. COMPARISON: Thoracic and lumbar spine radiographs dated 04/19/2020 FINDINGS: Thoracic spine: Alignment is normal. Vertebral body heights are normal. No fracture. Mild disc height loss at T2-T3 t hrough T7-T8. There are small bridging or nearly bridging osteophytes at multiple levels consistent w ith diffuse idiopathic skeletal hyperostosis (DISH). This along with hypertrophic osteophytes associa nataliya with mild facet osteoarthritis contributing to moderate left-sided neural from stenosis and mild central canal stenosis at T3-T4 and T4-T5. There is also some ossification along the posterior longit udinal ligament contributing to mild central canal stenosis at T6-T7, minimally at T5-T6 and T7-T8. T here is also mild central canal stenosis at T10-T11 resulting from hypertrophic osteophytes at the le ft facet joint. Visual is portions of the lungs are clear. Paravertebral soft tissues are unremarkabl e. Lumbar spine: Alignment is normal. Vertebral body heights are normal. No fracture. Disc heights are normal. There a re disc bulges contributing to mild central canal stenosis and mild bilateral neural foraminal stenos is at L4-L5 and mild central canal and mild to moderate bilateral neural foraminal stenosis at L5-S1. Multilevel mild to moderate lumbar facet osteoarthritis. Paravertebral soft tissues are unremarkable . Normal appendix. Small amount of likely physiologic free fluid in the cul-de-sac. Mild bilateral sa croiliac osteoarthritis. IMPRESSION: 1. Mild thoracic and lumbar spondylosis. No acute osseous abnormality. Reviewed, dictated and finalized at location A.
--- NOTE | ~2024-03-01 | XR_ITS ---
EXAMINATION: SACRUM/COCCYX DATE: 03/01/2024 14:32 INDICATION: Low back pain TECHNIQUE: Three views sacrum/coccyx FINDINGS: No prior studies for comparison. There is no displaced fracture of the sacrum. The coccyx demonstrates overall normal morphology with out acute angulation.There is lower lumbar spondylosis partially visualized. IMPRESSION: 1. No acute displaced osseous abnormality of the sacrum. Suspicion for occult or nondisplaced sacral fracture can either be evaluated with CT or MRI. 2. Grossly normal morphology to the coccyx without acute angulation. However, due to the wide range of normal variation of the coccyx, acute injury would be best evaluated by clinical examination and patient's symptoms. Reviewed, dictated and finalized at location B.
[2024-03-01 13:40] VITALS: PULSE 89; RESP 18; TEMP 36.8; O2SAT 99
--- NOTE | 2024-03-01 13:43 | ED.BACK ---
HPI - Back Pain/Injury General Chief Complaint: Back Pain/Injury <PARTH Jacome Last Filed: 03/01/24 13:50> Stated Complaint: fell tuesday, low back pain <PARTH Jacome Last Filed: 03/01/24 13:50> Time Seen by Provider: 03/01/24 13:43 <PARTH Jacome Last Filed: 03/01/24 13:50> Focused HPI: Patient is a 43 y/o female who presents to the ED with c/o back pain. Patient reports she fell backwards while running on Tuesday while playing with her children in her backyard. Landed on her buttocks. States she heard several pops. Has had pain throughout her mid to lower back and buttock since then. Has been resting, using heating pad, and taking ibuprofen w/o relief. Denies HI/LOC. Denies numbness/tingling, weakness, bowel/bladder incontinence, abd pain. Patient took ibuprofen 1.5 hours ago. GENERAL: Uncomfortable-appearing, well-nourished, and in no acute distress. HEAD: Normocephalic, atraumatic. CHEST: Clear to auscultation. ?No respiratory distress. HEART: Regular rate and rhythm.? MSK: Diffuse tenderness throughout lower thoracic midline spine, extending Into lumbar midline spine. No palpable deformities or bony step-offs. Bilateral paraspinal muscle tenderness throughout thoracic and lumbar spine, worse on left side into upper buttocks. NEURO: ?Alert and oriented x3. Patient screened in triage and initial orders placed.? ?Additional care and disposition to be based upon?diagnostic testing and treatment. <PARTH Jacome Last Filed: 03/01/24 13:50> Source: patient <PARTH Jacome Last Filed: 03/01/24 13:50> Mode of arrival: ambulatory <PARTH Jacome Last Filed: 03/01/24 13:50> Limitations: no limitations <PARTH Jacome Last Filed: 03/01/24 13:50> History of Present Illness HPI Narrative: 43-year-old with a history of diabetes here with complaints of tailbone pain failed 3 days ago complains of intense pain. Patient states that she has taken ibuprofen with good minimal relief. No bladder or bowel incontinence <Chepe Boyd MD - Last Filed: 03/01/24 15:50> MD elicited complaint: back pain, back injury and fall <Chepe Boyd MD - Last Filed: 03/01/24 15:50> Pertinent past history: recent trauma <Chepe Boyd MD - Last Filed: 03/01/24 15:50> Onset (ago): day(s) (2) <Chepe Boyd MD - Last Filed: 03/01/24 15:50> Timing: constant <Chepe Boyd MD - Last Filed: 03/01/24 15:50> Severity: moderate <Chepe Boyd MD - Last Filed: 03/01/24 15:50> Quality: aching <Chepe Boyd MD - Last Filed: 03/01/24 15:50> Location: lumbar spine and sacrum <Chepe Boyd MD - Last Filed: 03/01/24 15:50> Radiation: none <Chepe Boyd MD - Last Filed: 03/01/24 15:50> Exacerbating factors: none <Chepe Boyd MD - Last Filed: 03/01/24 15:50> Context: fall <Chepe Boyd MD - Last Filed: 03/01/24 15:50> Associated symptoms: denies other symptoms <Chepe Boyd MD - Last Filed: 03/01/24 15:50> Related Data Home Medications: Home Medications Medication Instructions Recorded Confirmed metformin 750 mg tablet,extended 750 mg PO BID 02/29/20 02/29/20 release 24 hr multivitamin 1 tablet PO DAILY 02/29/20 02/29/20 <Meagan Lundy PA-C - Last Filed: 03/01/24 13:50> Allergies/Adverse Reactions: Allergies Allergy/AdvReac Type Severity Reaction Status Date / Time codeine Allergy Mild HIVES Verified 03/01/24 13:42 <Meagan Lundy PA-C - Last Filed: 03/01/24 13:50> Review of Systems Review of Systems: All systems reviewed & are unremarkable except as noted in HPI and below <Chepe Boyd MD - Last Filed: 03/01/24 15:50> Constitutional: Constitutional: Reports no additional constitutional complaints <Chepe Boyd MD - Last Filed: 03/01/24 15:50> ENT: Reports system reviewed
[2024-03-01] MEDS: ACETAMINOPHEN 500 MG TABLET 1000 MG PO (13:53)
[2024-03-01] MEDS: methylPREDNISolone SOD SUCC 125 MG VIAL IM (13:54)
== END 2024-03-01 16:07 | disposition home or self-care (01) ==
PROVIDERS: Emergency Provider Family Medicine; PCP Emergency Medicine
DX: S30.0XXA Contusion of lower back and pelvis, initial encounter (principal); E11.42 Type 2 diabetes mellitus with diabetic polyneuropathy; E28.2 Polycystic ovarian syndrome; K21.9 Gastro-esophageal reflux disease without esophagitis; Z87.891 Personal history of nicotine dependence; Z90.49 Acquired absence of other specified parts of digestive tract; Z79.4 Long term (current) use of insulin; M47.816 Spondylosis without myelopathy or radiculopathy, lumbar region; M47.814 Spondylosis without myelopathy or radiculopathy, thoracic region; W18.39XA Other fall on same level, initial encounter; Y93.02 Activity, running
CPT/HCPCS: 72128; 72131; 72220; 81025; 96372; 99284; A9270; J2919